=== PATIENT | female | born 1985 | race Caucasian/White ===

== ENCOUNTER 2016-11-11 07:12 | Emergency (ER) | payer OTHER, BC ==
[~2016-11-11] VITALS: Ht 165.1 cm; Wt 113.5 kg
[~2016-11-11 07:12] MED LIST: ATV1 PO; GLC500 PO; LEVO50TA6 PO; METH1TAB18 PO; OMEP40CA41 PO; RTL10 PO; SERT1TAB88 PO
[2016-11-11 07:15] VITALS: TEMP 36.5; Ht 165.1 cm; Wt 113.5 kg
[2016-11-11] MEDS ORDERED: IBUPROFEN 600 MG TAB PO STA (07:26)
--- NOTE | 2016-11-11 07:42 | DIAGNOSTIC IMAGING REPORT ---
RIGHT ANKLE MIN 3 VIEWS ROUTINE CLINICAL HISTORY: R ankle injury at work Right trauma COMPARISON: None. DISCUSSION: Tiny avulsion tip distal fibula. Ankle mortise is aligned anatomically. Mild soft tissue edema. IMPRESSION: Tiny avulsion tip distal fibula. Electronically signed by: Bennie Parker M.D. 11/11/2016 7:40 AM Dictated Date/Time: 11/11/2016 7:40 AM
[2016-11-11 08:01] VITALS: BP 124/85; PULSE 63; O2SAT 100
--- NOTE | 2016-11-11 17:55 | EMERGENCY ROOM VISIT NOTE ---
ED Visit Note First contact with patient: 07:16 CHIEF COMPLAINT: Right ankle pain. HISTORY OF PRESENT ILLNESS: Ms. Mattson is a 31-year old white female who ambulates into the ED complaining of right lateral and posterior ankle pain. 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 She was walking across the floor and make a sudden stop and reported that she twisted her ankle. Since that time she has been having right lateral and posterior ankle pain. She describes the pain as a sharp sensation. She rates her discomfort 6/10. The pain is nonradiating. Her pain worsens with ambulation, weightbearing, palpation, inversion and plantarflexion. She has not identified any alleviating factors related to the pain. She has not taken any medications for pain prior to arrival at the hospital. Associated with her pain she has noted some mild swelling over the lateral aspect of the ankle. Historically she does report she has weak ankles but has never had any fractures or significant surgeries to the right ankle. She denies any associated symptoms including hip pain, knee pain, medial ankle pain, foot pain, leg/foot weakness/numbness/tingling. REVIEW OF SYSTEMS: As previously noted in History of Present Illness. PAST MEDICAL HISTORY: Diabetes. CURRENT MEDICATIONS: Medications Dose Route/Sig Max Daily Dose Days Date Category Sertraline HCl 25 Mg Tab 25 Mg PO DAILY 02/10/16 Reported Methylphenidate HCl 10 Mg Tab 10 Mg PO DAILY PRN 02/10/16 Reported Methylphenidate Hcl Er (Methylphenidate Hcl) 36 Mg Tab 36 Mg PO DAILY 02/10/16 Reported Lorazepam 1 Mg Tab 1 Mg PO HS 02/10/16 Reported Prilosec (Omeprazole) 40 Mg Cap 40 Mg PO DAILY 02/10/16 Reported Metformin HCl 500 Mg Tab 500 Mg PO DAILY 02/10/16 Reported Levothyroxine Sodium 50 Mcg Tab 50 Mcg PO DAILY 06/07/15 Reported ALLERGIES TO MEDICATIONS: Patient denies. SOCIAL HISTORY: Patient is currently employed; she feels safe in her home environment; she admits to tobacco and alcohol use. PHYSICAL EXAM: Vital Signs: Date Time Temp Pulse Resp B/P Pulse Ox O2 Delivery O2 Flow Rate FiO2 11/11/16 08:01 63 16 124/85 100 Room Air 11/11/16 07:15 36.5 74 18 122/88 98 Room Air General: 31 year old female in mild distress due to pain, nontoxic-appearing, afebrile and hemodynamically stable. Neurological: Awake, alert, oriented to person place and time. Answering questions appropriately and following commands. Skin: Warm dry and pink. No soft tissue injuries. Right Lower Extremity: No gross leatha deformities. No tenderness in the hip or knee. Tenderness over the ligamentous areas anterior, inferior and posterior to the ankle with mild swelling but no bony deformities or crepitus. There is mild tenderness over the Achilles tendon which is attached but no tenderness in the gastrocnemius. I was not able to produce any laxity of the ligamentous structures around the ankle. She did have full range of motion of the ankle and the toes. Throughout the foot the skin is pink and warm with brisk capillary refill. Able to distinguish light sensations through all dermatomes of the foot. ED COURSE: Patient is assessed as noted above. Right Ankle X-Rays: Was read by myself and the radiologist shows an avulsion fracture the distal tip of the right fibula. Patient is given 600 mg of ibuprofen and ice for pain, swelling and comfort. Patient is placed in a gel splint and is instructed on crutch use. Patient is educated about her condition and instructed on her treatment plan; she verbalizes understanding and agreement with the our plan. CLINICAL IMPRESSION: Right fibular avulsion fracture. DISPOSITION: Patient is discharged to home in stable condition; prior to discharge patient subjectively reports she is feeling worse and rated the pain 7 /10. PLAN: Comfort measures were discussed with the patient. Patient was told to follow-up with [facility] for recheck and return to work instruction and possible referral to orthopedics. Patient was encouraged to return ED as needed for worsening/uncontrolled pain, uncontrolled swelling, ankle/foot weakness/numbness/tingling or any new/ concerning symptoms.
== END 2016-11-11 08:07 | disposition home or self-care (01) ==
LOC: C.EDB 07:13 → C.EDA 08:07
DX: S82.831A Other fracture of upper and lower end of right fibula, initial encounter for closed fracture (principal); X50.1XXA Overexertion from prolonged static or awkward postures, initial encounter; Y92.89 Other specified places as the place of occurrence of the external cause; Y99.0 Civilian activity done for income or pay; E11.9 Type 2 diabetes mellitus without complications; Z79.899 Other long term (current) drug therapy; Z72.0 Tobacco use

== ENCOUNTER 2017-09-10 03:15 | Emergency (ER) | payer OTHER ==
[~2017-09-10] VITALS: Ht 165.1 cm; Wt 118.4 kg
[2017-09-10 03:18] VITALS: TEMP 36.8; Ht 165.1 cm; Wt 118.4 kg
[2017-09-10] MEDS ORDERED: TRAM-10 PO (03:38)
[2017-09-10] MEDS ORDERED: ALBU18002 INH (03:40)
[2017-09-10] MEDS ORDERED: CHOL20007 PO (03:43)
--- NOTE | 2017-09-10 03:51 | EMERGENCY ROOM VISIT NOTE ---
History First contact with patient: 03:23 Chief Complaint: BACK PAIN Stated Complaint: BACK PAIN History of Present Illness The patient is a 32 year old female who presents to the Emergency Room with complaints of back pain times a few weeks which has worsened tonight. The patient states that she was standing up from going to the bathroom and felt a crack/pop in her back and increased pain. She states that her pain has improved now, but she has an ache across the middle of her back. The pain has been located in the left side of her mid back for the past few weeks. She was seen at her primary care provider and actually had an x-ray done for bronchitis when they found a wedge deformity/compression fracture of the spine. She is scheduled for an MRI tomorrow. She reports trying a chiropractor without relief. She was on steroids which did not help. She has been taking tramadol which do help to relieve her pain. She takes naproxen [id number]. She denies any history of back problems or recent trauma to the back. She denies any numbness/weakness in her legs or arms, fevers, bowel/bladder incontinence or saddle anesthesia. Review of Systems A complete 10 point review of systems was reviewed with the patient with pertinent positives and negatives as per history of present illness. All else were negative. Past Medical/Surgical History Medical Problems: (1) ESOPHAGEAL REFLUX (2) FAM HX-DIABETES MELLITUS (3) FAM HX-ISCHEM HEART DIS (4) TOBACCO USE DISORDER Family History Cancer Diabetes mellitus Heart disease Lung disease Social History Smoking Status: Current Every Day Smoker Alcohol Use: occasionally Marital Status: Housing Status: lives with significant other Occupation Status: employed Current/Historical Medications Scheduled Cholecalciferol (Vitamin D3), 4,000 INTUNIT PO DAILY Levothyroxine Sodium (Levothyroxine Sodium), 75 MCG PO DAILY Metformin HCl (Metformin HCl), 500 MG PO DAILY Methylphenidate Hcl (Methylphenidate Hcl Er), 20 MG PO DAILY Omeprazole (Prilosec), 40 MG PO DAILY Sertraline HCl (Sertraline HCl), 50 MG PO DAILY Tramadol Hcl (Ultram), 50 MG PO Q4H Scheduled PRN Albuterol Sulfate (Proair Respiclick), 2 PUFFS INH DIRECTED PRN for SOB/ Wheezing Lorazepam (Lorazepam), 1 MG PO HS PRN for Sleep Methylphenidate HCl (Methylphenidate HCl), 10 MG PO DAILY PRN for focus Tramadol (Ultram), 50 MG PO Q6 PRN for Pain Physical Exam Vital Signs Date Time Temp Pulse Resp B/P (MAP) Pulse Ox O2 Delivery O2 Flow Rate FiO2 09/10/17 03:59 78 20 130/72 98 09/10/17 03:18 36.8 106 20 144/85 98 Room Air Physical Exam VITALS: Vitals are noted on the nurse's note and reviewed by myself. Vital signs stable. GENERAL: This is a 32-year-old female, in no acute distress, nondiaphoretic, well-developed well-nourished. SKIN: The skin was without rashes. HEART: Regular rate and rhythm without murmurs gallops or rubs. LUNGS: Clear to auscultation bilaterally without wheezes, rales or rhonchi. MUSCULOSKELETAL: There is mild tenderness to palpation in the midline thoracolumbar region and bilateral paraspinous muscles. NEURO: Patient was alert and oriented to person place and time. No focal neurological deficits. Medical Decision & Procedures Medical Decision Differential diagnosis includes cauda equina syndrome, cord compression, disc herniation, compression fracture, muscle spasm, lumbar strain, epidural abscess , malignancy, transverse myelitis, urinary tract infection, colitis, diverticulitis, kidney stone, among others. The patient is a 32-year-old female who presents today complaining of back pain. The patient reports a history of worsening pain over the past few weeks and has been diagnosed with a compression fracture by her primary care provider. She is actually scheduled for an MRI tomorrow. She had worsening pain after standing up from a seated position which has improved at the time of my evaluation. I feel this is likely muscular in nature. She has been taking tramadol at home for the pain and states this has been working very well for her. I do not feel that she needs an emergent MRI at this time. There is nothing to suggest cauda equina syndrome or cord compression. The [employer] system was accessed by case management and shows that the patient does have a compression fracture at the thoracolumbar junction. Patient does state that she is out of tramadol and was given an additional prescription for 10 tablets of this to take until she is able to follow up with her PCP. Based on the patient's presentation and work up, I feel the patient is stable for outpatient treatment. The patient was educated to return to the emergency department for any worsening of their current condition or new/concerning symptoms. She will follow up with her PCP. [facility] Drug Monitoring Program Search Results: patient reviewed within database, no issues identified ( receive tramadol rx 30 pills 08/27/17) Medication Reconcilliation Current Medication List: was personally reviewed by me Blood Pressure Screening Patient's blood pressure: Elevated blood pressure Blood pressure disposition: Elevated BP felt to be situational Impression Primary Impression: Compression fracture Departure Information Dispostion Home / Self-Care Condition GOOD Prescriptions Tramadol Hcl (ULTRAM) 50 Mg Tab 50 MG PO Q4H for Pain, #10 TAB For Initial Treatment Prov: Veronica Roblero .LILIAN 09/10/17 Referrals Augustine Carr M.D. (PCP) Patient Instructions My [facility] Additional Instructions Continue to take the tramadol at home as needed for pain. Return for your MRI as scheduled. Call your primary care provider today to schedule a follow-up appointment. Return to the emergency department for any numbness/weakness of the extremities , worsening pain, fevers, or any other/concerning symptoms.
[2017-09-10 03:59] VITALS: BP 130/72; PULSE 78; O2SAT 98
[2017-09-10] MEDS ORDERED: TRAM-453 PO (04:00)
[2017-10-04] MEDS ORDERED: OXYC-737 PO (05:53)
== END 2017-09-10 04:01 | disposition home or self-care (01) ==
LOC: C.EDB 03:16
DX: M48.55XA Collapsed vertebra, not elsewhere classified, thoracolumbar region, initial encounter for fracture (principal); K21.9 Gastro-esophageal reflux disease without esophagitis; F17.200 Nicotine dependence, unspecified, uncomplicated; Z79.84 Long term (current) use of oral hypoglycemic drugs; Z83.3 Family history of diabetes mellitus; Z82.49 Family history of ischemic heart disease and other diseases of the circulatory system; Z80.9 Family history of malignant neoplasm, unspecified

== ENCOUNTER → 2017-09-11 | Outpatient (CLI) | payer OTHER ==
[~2017-09-11] MED LIST changes: +ALBU18002 INH; +CHOL20007 PO; +TRAM-10 PO; +TRAM-453 PO
--- NOTE | 2017-09-11 08:33 | DIAGNOSTIC IMAGING REPORT ---
MRI OF THE THORACIC SPINE WITHOUT CONTRAST CLINICAL HISTORY: Chronic left sided thoracic pain. COMPARISON: None. TECHNIQUE: Utilizing a 1.5 Rachel magnet and dedicated coil, multiplanar, multiecho imaging of the thoracic spine was performed without IV contrast. FINDINGS: Alignment of the thoracic spine is anatomic. Vertebral body heights are maintained. There is no suspicious marrow replacement. Paravertebral soft tissues are unremarkable. Thoracic cord signal and caliber are normal. There is no intracanalicular mass or fluid collection. There is a tiny left paracentral disc protrusion at T7-T8 with mild inferior subligamentous migration. There is no significant central canal or neural foraminal stenosis. There is mild disc space narrowing with a small left paracentral disc protrusion at T11-T12. No additional protrusion or extrusions are noted. Central canal and neural foramen are patent. A few Schmorl's nodes are noted within the lower thoracic and upper lumbar spine. IMPRESSION: 1. Tiny left paracentral disc protrusion at T7-T8 with mild inferior subligamentous migration. No significant central canal or neural foraminal stenosis. 2. Tiny left paracentral disc protrusion at T11-T12. 3. Normal thoracic cord signal and caliber. Electronically signed by: Patrick Lorenzo M.D. 09/11/2017 8:32 AM Dictated Date/Time: 09/11/2017 8:18 AM
== END | disposition home or self-care (01) ==
LOC: C.MRI 07:24
PROVIDERS: ATTEND Family Medicine
DX: M51.24 Other intervertebral disc displacement, thoracic region (principal); G89.29 Other chronic pain

== ENCOUNTER 2017-10-04 02:11 | Emergency (ER) | payer OTHER ==
[~2017-10-04] VITALS: Ht 165.1 cm; Wt 118.8 kg
[~2017-10-04 02:11] MED LIST changes: -TRAM-453 PO
[2017-10-04 02:24] VITALS: TEMP 36.9; Ht 165.1 cm; Wt 118.8 kg
[2017-10-04] MEDS ORDERED: ONDANSETRON INJ 2 MG/ML 2 ML VIAL IV STA (03:03)
[2017-10-04] MEDS ORDERED: KETOROLAC TROMETHAMINE 30 MG/ML VIAL IV STA (03:03)
[2017-10-04 03:20] LABS: BASO % 0.2 %; BASO ABS # 0.02 K/uL (0-0.2); EOS % 5.8 %; EOS ABS # 0.53 K/uL (0-0.5); HEMATOCRIT 36.8 % (37-47); HEMOGLOBIN 12.4 g/dL (12.0-16.0); IG# 0.02 K/uL (0.00-0.02); LYMPH % 32.6 %; LYMPH ABS # 2.98 K/uL (1.2-3.4); MEAN CELL VOLUME 82.7 fL (80-100); MEAN CORPUSCULAR HEMOGLOBIN 27.9 pg (25-34); MEAN CORPUSCULAR HGB CONC 33.7 g/dl (32-36); MEAN PLATELET VOLUME 9.4 fL (7.4-10.4); MONO % 8.4 %; MONO ABS # 0.77 K/uL (0.11-0.59); NEUT % 52.8 %; NEUT ABS # 4.82 K/uL (1.4-6.5); PLATELET COUNT 264 K/uL (130-400); WHITE BLOOD COUNT 9.14 K/uL (4.8-10.8)
[2017-10-04 03:37] LABS: ALBUMIN 3.7 gm/dl (3.4-5.0); ALT/SGPT 22 U/L (12-78); AST/SGOT 11 U/L (15-37); BLOOD UREA NITROGEN 14 mg/dl (7-18); CALCIUM 8.5 mg/dl (8.5-10.1); CARBON DIOXIDE 27 mmol/L (21-32); CREATININE 0.86 mg/dl (0.60-1.20); GLUCOSE 109 mg/dl (70-99); POTASSIUM 3.8 mmol/L (3.5-5.1); SODIUM 138 mmol/L (136-145)
[2017-10-04 03:40] LABS: ALKALINE PHOSPHATASE 55 U/L (45-117); TOTAL PROTEIN 7.1 gm/dl (6.4-8.2)
[2017-10-04] MEDS ORDERED: MoRPHine SULFATE 4 MG/ML 1 ML CARP\\VIAL IV STA (05:15)
[2017-10-04] MEDS ORDERED: OXYC1TAB3 PO (05:53)
[2017-10-04] MEDS ORDERED: OXYCODONE IR HOME PACK PO ONE (06:00)
[2017-10-04] MEDS ORDERED: ONDANSETRON HOME PACK 4MG OD TAB PO ONE (06:00)
--- NOTE | 2017-10-04 06:10 | EMERGENCY ROOM VISIT NOTE ---
History First contact with patient: 03:02 Chief Complaint: PELVIC PAIN Stated Complaint: PAIN LEFT OVARY History of Present Illness The patient is a 32 year old female who presents to the Emergency Room with complaints of left lower suprapubic pain for the past few days steadily getting worse whose has a history of ovarian cyst. She follows at [facility]. Pain currently 6 out of 10. Nothing makes it better or worse. It does not radiate. It is described as aching. Patient denies chest pain, dyspnea, fever , chills, vomiting, diarrhea, back pain, urinary symptoms, vaginal itching or discharge. Review of Systems See HPI for pertinent positives & negatives. A total of 10 systems reviewed and were otherwise negative. Past Medical/Surgical History Medical Problems: (1) ESOPHAGEAL REFLUX (2) FAM HX-DIABETES MELLITUS (3) FAM HX-ISCHEM HEART DIS (4) TOBACCO USE DISORDER Family History Cancer Diabetes mellitus Heart disease Lung disease Social History Smoking Status: Current Every Day Smoker Alcohol Use: occasionally Marital Status: Housing Status: lives with significant other Occupation Status: employed Current/Historical Medications Scheduled Cholecalciferol (Vitamin D3), 4,000 INTUNIT PO DAILY Levothyroxine Sodium (Levothyroxine Sodium), 75 MCG PO DAILY Metformin HCl (Metformin HCl), 500 MG PO DAILY Methylphenidate Hcl (Methylphenidate Hcl Er), 20 MG PO DAILY Omeprazole (Prilosec), 40 MG PO DAILY Sertraline HCl (Sertraline HCl), 50 MG PO DAILY Scheduled PRN Albuterol Sulfate (Proair Respiclick), 2 PUFFS INH DIRECTED PRN for SOB/ Wheezing Lorazepam (Lorazepam), 1 MG PO HS PRN for Sleep Methylphenidate HCl (Methylphenidate HCl), 10 MG PO DAILY PRN for focus Oxycodone Immediate Rel Tab (Roxicodone Ir), 1-2 TAB PO Q4H PRN for Severe Pain Tramadol (Ultram), 50 MG PO Q6 PRN for Pain Physical Exam Vital Signs Date Time Temp Pulse Resp B/P (MAP) Pulse Ox O2 Delivery O2 Flow Rate FiO2 10/04/17 05:20 63 16 143/73 99 Room Air 10/04/17 03:23 60 16 143/104 96 Room Air 10/04/17 02:24 36.9 75 18 163/98 98 Room Air Physical Exam VITALS: Vitals are noted on the nurse's note and reviewed by myself. Vital signs hypertensive. GENERAL: Pleasant female, in no acute distress, nondiaphoretic, well-developed well-nourished. SKIN: The skin was without rashes, erythema, edema, or bruising. There is no tenting of the skin. Capillary reflex less than 2 seconds. HEAD: Normocephalic atraumatic. EARS: External auditory canals clear, tympanic membranes pearly alba without erythema or effusion bilaterally. EYES: Pupils equal round and reactive to light and accommodation. Conjunctivae without injection, sclerae without icterus. Extraocular movements intact. NOSE: Patent, turbinates without inflammation or discharge. MOUTH: Mucous membranes moist. Pharynx without erythema or exudate. Uvula midline. Airway patent. Tongue does not deviate. NECK: Supple without nuchal rigidity. No lymphadenopathy. No thyromegaly. Cervical spine is nontender. No JVD. HEART: Regular rate and rhythm without murmurs gallops or rubs. LUNGS: Clear to auscultation bilaterally without wheezes, rales or rhonchi. No dullness to percussion. No retractions or accessory muscle use. ABDOMEN: Positive bowel sounds x 4. Normal tympanic percussion. Soft, tender to palpation left lower suprapubic region, no CVA tenderness, protuberant, obese , without masses or organomegaly. Mckeon sign negative. No guarding or rebound tenderness. MUSCULOSKELETAL: No muscle atrophy, erythema, or edema noted. NEURO: Patient was alert and oriented to person place and time. Normal sensation to light and sharp touch. No focal neurological deficits. Medical Decision & Procedures Laboratory Results 10/04/17 03:05 Red Blood Count 4.45, Mean Corpuscular Volume 82.7, Mean Corpuscular Hemoglobin 27.9, Mean Corpuscular Hemoglobin Concent 33.7, Mean Platelet Volume 9.4, Neutrophils (%) (Auto) 52.8, Lymphocytes (%) (Auto) 32.6, Monocytes (%) (Auto) 8.4, Eosinophils (%) (Auto) 5.8, Basophils (%) (Auto) 0.2, Neutrophils # (Auto) 4.82, Lymphocytes # (Auto) 2.98, Monocytes # (Auto) 0.77, Eosinophils # (Auto) 0.53, Basophils # (Auto) 0.02 10/04/17 03:05 Test 10/04/17 03:05 White Blood Count 9.14 K/uL (4.8-10.8) Red Blood Count 4.45 M/uL (4.2-5.4) Hemoglobin 12.4 g/dL (12.0-16.0) Hematocrit 36.8 % (37-47) Mean Corpuscular Volume 82.7 fL (80-100) Mean Corpuscular Hemoglobin 27.9 pg (25-34) Mean Corpuscular Hemoglobin Concent 33.7 g/dl (32-36) Platelet Count 264 K/uL (130-400) Mean Platelet Volume 9.4 fL (7.4-10.4) Neutrophils (%) (Auto) 52.8 % Lymphocytes (%) (Auto) 32.6 % Monocytes (%) (Auto) 8.4 % Eosinophils (%) (Auto) 5.8 % Basophils (%) (Auto) 0.2 % Neutrophils # (Auto) 4.82 K/uL (1.4-6.5) Lymphocytes # (Auto) 2.98 K/uL (1.2-3.4) Monocytes # (Auto) 0.77 K/uL (0.11-0.59) Eosinophils # (Auto) 0.53 K/uL (0-0.5) Basophils # (Auto) 0.02 K/uL (0-0.2) RDW Standard Deviation 39.0 fL (36.4-46.3) RDW Coefficient of Variation 13.0 % (11.5-14.5) Immature Granulocyte % (Auto) 0.2 % Immature Granulocyte # (Auto) 0.02 K/uL (0.00-0.02) Urine Color YELLOW Urine Appearance CLEAR (CLEAR) Urine pH 7.5 (4.5-7.5) Urine Specific Solomon 1.026 (1.000-1.030) Urine Protein NEG (NEG) Urine Glucose (UA) NEG (NEG) Urine Ketones NEG (NEG) Urine Occult Blood TRACE (NEG) Urine Nitrite NEG (NEG) Urine Bilirubin NEG (NEG) Urine Urobilinogen NEG (NEG) Urine Leukocyte Esterase NEG (NEG) Urine WBC (Auto) 1-5 /hpf (0-5) Urine RBC (Auto) 5-10 /hpf (0-4) Urine Hyaline Casts (Auto) 1-5 /lpf (0-5) Urine Epithelial Cells (Auto) >30 /lpf (0-5) Urine Bacteria (Auto) 1+ (NEG) Urine Test NEG (NEG) Anion Gap 5.0 mmol/L (3-11) Est Creatinine Clear Calc Drug Dose 123.4 ml/min Estimated GFR () 105.1 Estimated GFR (Non- 90.7 BUN/Creatinine Ratio 16.6 (10-20) Calcium Level 8.5 mg/dl (8.5-10.1) Total Bilirubin 0.2 mg/dl (0.2-1) Direct Bilirubin < 0.1 mg/dl (0-0.2) Aspartate Amino Transf (AST/SGOT) 11 U/L (15-37) Alanine Aminotransferase (ALT/SGPT) 22 U/L (12-78) Alkaline Phosphatase 55 U/L (45-117) Total Protein 7.1 gm/dl (6.4-8.2) Albumin 3.7 gm/dl (3.4-5.0) Medications Administered Medications (Trade) Dose Ordered Sig/Seema Route Start Time Stop Time Status Last Admin Dose Admin Ketorolac Tromethamine (Toradol Inj) 30 mg NOW STAT IV 10/04/17 03:03 10/04/17 03:06 DC 10/04/17 03:19 30 MG Ondansetron HCl (Zofran Inj) 4 mg NOW STAT IV 10/04/17 03:03 10/04/17 03:06 DC 10/04/17 03:19 4 MG Morphine Sulfate (MoRPHine SULFATE INJ) 4 mg NOW STAT IV 10/04/17 05:15 10/04/17 05:16 DC 10/04/17 05:20 4 MG ED Course Prior records/ancillary studies reviewed. Triage Nursing notes reviewed. Additional history obtained from family The patient's history was concerning for abdominal pain. Differential diagnosis: Etiologies such as cyst, torsion, appendicitis, diverticulitis, PUD, biliary pathology, UTI, pancreatitis, obstruction, mesenteric ischemia, aortic pathology , infections, inflammatory bowel disease, renal colic, as well as others were entertained. Physical examination findings: As above. ER treatment provided: Toradol, morphine, OxyIR On reassessment the patient felt better. Diagnostics interpreted by me: The labs revealed no worrisome leukocytosis. Negative hCG. Negative urine Imaging studies: US PELVIC/ENDOVAG: Compared to 02/21/2016. Redemonstration of complex multicystic lesion or adjacent lesions in the left adnexa, overall measuring approximately 7.1 cm. Hypoechoic lesion also seen in the right adnexa measuring 2.4 cm Differential considerations include endometrioma, hemorrhagic cyst, tubo- ovarian abscess, or neoplasm. Ovaries not well seen. Radiologist: Chyna Sanchez M.D. Exam and history seem consistent with left ovarian cyst. This is slightly larger than prior ultrasound from a year and a half ago. She is advised to follow-up with her OB in a few days or here in the ER sooner for pain, fevers, vomiting, worsening signs or symptoms or as needed. Patient did not have acute abdomen on exam. She is well-appearing. She was not .By the evaluation outlined above emergent etiologies such as appendicitis, diverticulitis, PUD, biliary pathology, UTI, pancreatitis, obstruction, mesenteric ischemia, aortic pathology, infections, inflammatory bowel disease, renal colic, as well as others were deemed relatively unlikely. The pt informed about the findings as listed above. All questions were answered and pleased with the treatment. Return instructions were outlined and the patient was discharged in stable condition. Outpatient prescription management: Chet Schwarz Referral: The patient was referred back to their [facility] for follow-up in 2 to 3 days for a recheck of the current condition. Case reviewed with my attending Medical Decision As above [place] Drug Monitoring Program Search Results: patient reviewed within database, see additional documentation (tramadol 08/31) Medication Reconcilliation Current Medication List: was personally reviewed by me Blood Pressure Screening Patient's blood pressure: Elevated blood pressure Blood pressure disposition: Elevated BP felt to be situational Impression Primary Impression: Left ovarian cyst Departure Information Dispostion Home / Self-Care Condition GOOD Prescriptions Oxycodone Immediate Rel Tab (ROXICODONE IR) 5 Mg Tab 1-2 TAB PO Q4H Y for Severe Pain, #15 TAB Prov: Mercedes Ramesh .LILIAN 10/04/17 Forms WORK / SCHOOL INSTRUCTIONS, HOME CARE DOCUMENTATION FORM, IMPORTANT VISIT INFORMATION Patient Instructions My [facility], ED Cyst Ovarian Additional Instructions DO NOT drive, drink alcohol, operate machinery, or perform dangerous activities today. You were given medications in the ER that can affect your ability to safely function or operate a vehicle. Recommend repeat pelvic ultrasound in 6 weeks for resolution of cyst. Rest. Stay well hydrated. No strenuous activity until symptoms resolve. Zofran 4 tablet every 6 hours as needed for nausea and vomiting. Oxycodone (OxyIR) 5mg: Take 1-2 pills every four hours for breakthrough pain. Avoid alcohol, operating machinery or dangerous equipment, working on ladders or roofs, DRIVING, or situations where being under the influence may be dangerous. It is recommended to use an [id number]-fmq-dwctnhy stool softener such as Colace, 100mg twice daily while taking this medication to avoid constipation. Ibuprofen(Motrin, Advil) may be used for fever or pain. Use 600mg every six hours as needed. Take with food. Avoid using more than 2400mg in a 24 hour period. Do not use 2400mg per day for more than three consecutive days without physician direction. Prolonged inappropriate use can lead to stomach upset or ulcers. (AND/OR) Acetaminophen(Tylenol) may be used for fever or pain. Use 1000mg every six hours as needed. Avoid using more than 3000mg in a 24 hour period. Rest and drink plenty of fluids as tolerated. Continue current medications. Return to the ER immediately for severe pain, heavy vaginal bleeding, abdominal pain, vomiting, fevers, chest pains, difficulty breathing, worsening of your condition, or as needed. Follow up with your [facility] in 2-3 days for a recheck of your current condition.
[2017-10-04 06:12] VITALS: BP 143/73; PULSE 63; O2SAT 99
--- NOTE | 2017-10-04 08:26 | DIAGNOSTIC IMAGING REPORT ---
ULTRASOUND OF THE PELVIS CLINICAL HISTORY: Left pelvic pain. Reported history of endometriosis. COMPARISON STUDY: Abdominal CT dated 06/07/2015. Pelvic ultrasound dated 02/21/2016. TECHNIQUE: Real-time, grayscale, and color flow sonography of the pelvis is performed both transabdominally and endovaginally. Images are reviewed in the transverse and longitudinal planes. FINDINGS: Uterus: The uterus is normal in size and echotexture, measuring 7.0 x 3.7 x 5.0 cm. Endometrium: The endometrium is normal in appearance, and the endometrial stripe is normal in thickness measuring up to 0.6 cm. Ovaries: The left ovary is enlarged and heterogeneous, measuring 7.1 x 3.1 x 5.4 cm. The right ovary measures 2.3 x 1.9 x 2.4 cm. There is a homogeneous hypoechoic obstruction right ovary which measures 2.2 cm. There are at least 4 cystic lesions identified in the left ovary. 1 of these were present a 2.4 cm dominant follicle. 1 measures 3.6 cm and demonstrates heterogeneous/lace like internal echoes, typical in appearance for a hemorrhagic cyst. The remaining 2 are homogeneously hypoechoic and measure up to 3.3 cm. Normal Doppler waveforms are shown within both ovaries. Pelvis: There is trace free fluid in the cul-de-sac. No concerning adnexal lesion is seen. IMPRESSION: 1. A 3.6 cm hemorrhagic cyst is noted in the left ovary. 2. There are least 3 homogeneously hypoechoic lesions present within both ovaries. These are indeterminant but suggestive of endometriomas. Neoplasm is considered much less likely, and these were also seen on 02/21/2016. Follow-up with the patient's residential insurance inspector is recommended. 3. There is no convincing sonographic evidence of ovarian torsion at the time of examination. 4. There is trace free fluid in the cul-de-sac, likely within physiologic limits. Electronically signed by: Didier Payne M.D. 10/04/2017 8:24 AM Dictated Date/Time: 10/04/2017 8:18 AM
== END 2017-10-04 06:14 | disposition home or self-care (01) ==
LOC: C.EDB 02:12 → C.EDA 06:14
DX: N83.202 Unspecified ovarian cyst, left side (principal); K21.9 Gastro-esophageal reflux disease without esophagitis; F17.200 Nicotine dependence, unspecified, uncomplicated; Z79.84 Long term (current) use of oral hypoglycemic drugs; Z80.9 Family history of malignant neoplasm, unspecified; Z83.3 Family history of diabetes mellitus; Z82.49 Family history of ischemic heart disease and other diseases of the circulatory system

== ENCOUNTER 2018-01-25 21:01 | Emergency (ER) | payer OTHER ==
[~2018-01-25] VITALS: Ht 165.1 cm; Wt 122.0 kg
[~2018-01-25 21:01] MED LIST changes: +OXYC1TAB3 PO
[2018-01-25 21:08] VITALS: TEMP 36.7; Ht 165.1 cm; Wt 122.0 kg
[2018-01-25] MEDS ORDERED: ACETAMINOPHEN 325 MG TAB PO STA (21:41)
--- NOTE | 2018-01-25 21:42 | EMERGENCY ROOM VISIT NOTE ---
History First contact with patient: 21:23 Chief Complaint: HEAD INJURY (MINOR) Stated Complaint: HEAD INJURY- WC History of Present Illness The patient is a 32 year old female who presents to the Emergency Room via private vehicle with complaints of "head injury". 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 She states that since then she has felt nauseous, and has had a headache that she rates as a 6/10 but is worsening is associated with light sensitivity, and lightheadedness. She has tried ibuprofen with minimal relief. She notes a history of migraines and this feels quite similar. She denies any history of concussions. She denies any loss of consciousness. She notes she has vomited twice since this time. She denies chance of . Review of Systems A complete 10-point Review of Systems was discussed with the patient, with pertinent positives and negatives listed in the History of Present Illness. All remaining Review of Systems questions can be considered negative unless otherwise specified. Past Medical/Surgical History Medical Problems: (1) ESOPHAGEAL REFLUX (2) FAM HX-DIABETES MELLITUS (3) FAM HX-ISCHEM HEART DIS (4) TOBACCO USE DISORDER Family History Cancer Diabetes mellitus Heart disease Lung disease Social History Smoking Status: Current Every Day Smoker Alcohol Use: occasionally Marital Status: Housing Status: lives with significant other Occupation Status: employed Current/Historical Medications Scheduled Leuprolide Acetate (Lupron Depot), 1 DOSE INJ MONTHLY Physical Exam Vital Signs Date Time Temp Pulse Resp B/P (MAP) Pulse Ox O2 Delivery O2 Flow Rate FiO2 01/25/18 23:06 63 16 136/102 98 Room Air 01/25/18 21:12 18 01/25/18 21:08 36.7 63 18 141/82 98 Room Air Physical Exam VITAL SIGNS - Vital signs and nursing notes were reviewed. Stable. GENERAL -32-year-old female appearing her stated age. Communicates well with provider and answers questions appropriately. SKIN - Gross examination of the entire body surface demonstrates no lacerations to the body surface. Skin overlying the anterior portion of the head as well as the entire scalp is unremarkable. HEAD - Normocephalic, Atraumatic. No Chris's Sign or Raccoon's Eyes. No depressed skull fractures palpable. EYES - PERRL with EOMI bilaterally. Without subconjunctival hemorrhage. Palpebral conjunctiva pink and moist with no injection. EARS - No deformities of external structures noted on gross examination bilaterally. No hemotympanum present. No tympanic perforation noted. Handle of malleus, umbo, cone of light, pars tensa/flaccid all easily visualized. NOSE - Midline and without cyanosis. No epistaxis or clear watery discharge noted. Septum midline without deviation. No septal hematoma noted. No overlying ecchymosis noted. MOUTH/OROPHARYNX - Without perioral cyanosis. Tongue midline with equal elevation of palate bilaterally. No blood noted in the oropharynx. No tonsillar hypertrophy, erythema, or exudates noted. No dental fractures noted. NECK -no tenderness to palpation over the cervical spinous processes. No cervical paraspinal muscle tenderness noted. LUNGS - Chest wall symmetric without accessory muscle use, intercostals retractions, or central cyanosis. Normal vesicular breath sounds CTA B/L. No wheezes, rales, or rhonchi appreciated. CARDIAC - RRR with S1/S2. No murmur, rubs, or gallops appreciated. EXTREMITIES - No gross deformities noted of the extremities. +5/5 strength noted in UE/LE bilaterally. NEUROLOGIC - Cranial nerves II through XII grossly intact. Sensory intact to light touch throughout. PSYCH - A&Ox3 and cooperates fully with examiner. Pt is very pleasant and interacts well with examiner. Medical Decision & Procedures ER Provider Diagnostic Interpretation: HEAD WITHOUT CONTRAST (CT) CLINICAL HISTORY: 32 years-old Female with Head trauma, emesis. Acute head injury TECHNIQUE: Multiple axial CT images of the head were obtained without contrast. A dose lowering technique was utilized adhering to the principles of ALARA. CT DOSE: 537.48 mGy.cm COMPARISON: None. CT head 08/19/2013 FINDINGS: No acute intracranial hemorrhage, midline shift, intracranial mass, hydrocephalus, territorial ischemia or abnormal extra-axial collection. The calvarium is intact. The paranasal sinuses, mastoid air cells, and middle ear cavities are clear. IMPRESSION: No acute intracranial abnormality. The above report was generated using voice recognition software. It may contain grammatical, syntax or spelling errors. Electronically signed by: Jabier Cosby M.D. 01/26/2018 6:27 AM Dictated Date/Time: 01/26/2018 6:26 AM Medications Administered Medications (Trade) Dose Ordered Sig/Seema Route Start Time Stop Time Status Last Admin Dose Admin Acetaminophen (Tylenol Tab) 650 mg NOW STAT PO 01/25/18 21:41 01/25/18 21:42 DC 01/25/18 22:16 650 MG Ondansetron HCl (Zofran Odt) 4 mg NOW STAT PO 01/25/18 21:49 01/25/18 21:50 DC 01/25/18 21:58 4 MG Rizatriptan Benzoate (Maxalt Tab) 10 mg NOW STAT PO 01/25/18 21:51 01/25/18 21:52 DC 01/25/18 22:17 10 MG Medical Decision Patient was seen and evaluated as above in room D1. Review was performed of nursing notes and vital signs. After obtaining a thorough history and physical examination the above work up was performed. She presents to us today status post head injury. She has not lost consciousness but since then she has vomited twice thus far. She has a history of migraines and this feels similar to the pain is increasing. I discussed with her the benefit versus risk of obtaining a CT scan and initially we decided to refrain as it was felt that the risk outweighed the benefit. The patient was given Tylenol, and Zofran. I reevaluated the patient and she unfortunately had vomited a few more times. Her then came to bedside and notes that she was stating that certain individuals were in her room at one point but were never there and subsequently raised concerned that there may be more of a head injury than initially suspected. I informed her that although the mechanism of injury does not sound significant to cause intracranial bleeding, her increased symptoms of vomiting and head pain I believe warrant a CT scan of the head. GCS 15. She denies chance of prior to medication administration and obtaining a CT scan. This was obtained with results as above. No acute process. I suspect she is likely experiencing a concussion. She was also given a Maxalt tablet. She was reevaluated and beginning to feel slightly better. She is to follow-up with occupational health regarding her work-related injury. I also recommend 2 days off of work. She notes her next work day to be Friday therefore she will be given a note for this today. She is to rest and thorough discussion was had regarding management of the concussion and she is to return with worsening. She was educated upon worrisome symptoms which to return. The patient was educated upon management, had questions answered prior to discharge, and was discharged home in good condition. In the evaluation and treatment of this patient, the following differential diagnoses were considered: Concussion, Contrecoup Injury, Brain Tumor, Depression, Encephalitis, Hypothyroidism, Meningitis, CVA, TIA, Migraine, Cluster Headache, Intracranial Abnormality, Intracranial Hemorrhage, Subdural Hematoma, Subarachnoid Hemorrhage, Hydrocephalus. Impression Primary Impression: Closed head injury Additional Impression: Concussion Departure Information Dispostion Home / Self-Care Condition GOOD Referrals Sury Galvez D.O. (PCP) Patient Instructions My [facility] Additional Instructions You have been treated in the Emergency Department for a Closed Head Injury. For pain control, you can use the following [id number] medicines: - Regular strength (325mg/tab) Tylenol (acetaminophen) 2 tabs every 4-6 hours as needed. Do not exceed 12 tablets in a 24 hour period. Avoid taking more than 3 grams (3000 mg) of Tylenol per day. This includes any other sources of acetaminophen you may take on a regular basis. - Regular strength (200 mg/tab) Advil (ibuprofen) 1-2 tabs every 4-6 hours as needed. Do not exceed a dose of 3200 mg per day. You should relax in a quiet, dark place for the rest of the day. Avoid any possible triggers including: cigarette smoke, caffeine, nicotine, chocolate, wine, beer, loud noises or music, or bright lights. You should schedule a follow-up appointment in 2-3 days with your Primary Care Provider or established Neurologist for further evaluation and treatment of your Headache. 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 Return to the Emergency Department if your current symptoms worsen despite treatment course outlined above, or if you develop any of the following symptoms : intractable pain despite aforementioned treatment course, visual disturbances , loss of vision, unilateral weakness or facial drooping, slurring of speech, loss of coordination, or loss of consciousness. Problem Qualifiers
[2018-01-25] MEDS ORDERED: ONDANSETRON 4MG OD TAB PO STA (21:49)
[2018-01-25] MEDS ORDERED: RIZATRIPTAN BENZOATE 10 MG TAB PO STA (21:51)
[2018-01-25] MEDS ORDERED: LPRI375 INJ (22:20)
[2018-01-25 23:06] VITALS: BP 136/102; PULSE 63; O2SAT 98
--- NOTE | 2018-01-26 06:28 | DIAGNOSTIC IMAGING REPORT ---
HEAD WITHOUT CONTRAST (CT) CLINICAL HISTORY: 32 years-old Female with Head trauma, emesis. Acute head injury TECHNIQUE: Multiple axial CT images of the head were obtained without contrast. A dose lowering technique was utilized adhering to the principles of ALARA. CT DOSE: 537.48 mGy.cm COMPARISON: None. CT head 08/19/2013 FINDINGS: No acute intracranial hemorrhage, midline shift, intracranial mass, hydrocephalus, territorial ischemia or abnormal extra-axial collection. The calvarium is intact. The paranasal sinuses, mastoid air cells, and middle ear cavities are clear. IMPRESSION: No acute intracranial abnormality. The above report was generated using voice recognition software. It may contain grammatical, syntax or spelling errors. Electronically signed by: Jaiber Cosby M.D. 01/26/2018 6:27 AM Dictated Date/Time: 01/26/2018 6:26 AM
== END 2018-01-25 23:35 | disposition home or self-care (01) ==
LOC: C.EDB 21:02 → C.EDA 23:35
DX: S09.90XA Unspecified injury of head, initial encounter (principal); S06.0X0A Concussion without loss of consciousness, initial encounter; W20.8XXA Other cause of strike by thrown, projected or falling object, initial encounter; F17.200 Nicotine dependence, unspecified, uncomplicated; Y99.0 Civilian activity done for income or pay

== ENCOUNTER 2018-05-12 17:19 | Emergency (ER) | payer OTHER ==
[~2018-05-12] VITALS: Ht 165.1 cm; Wt 124.0 kg
[~2018-05-12 17:19] MED LIST changes: -ALBU18002 INH; -ATV1 PO; -CHOL20007 PO; -GLC500 PO; -LEVO50TA6 PO; +LPRI375 INJ; -METH1TAB18 PO; -OMEP40CA41 PO; -OXYC1TAB3 PO; -RTL10 PO; -SERT1TAB88 PO; -TRAM-10 PO
[2018-05-12 17:22] VITALS: BP 148/97; PULSE 100; TEMP 36.9; O2SAT 100; Ht 165.1 cm; Wt 124.0 kg
[2018-05-12] MEDS ORDERED: IBUPROFEN 600 MG TAB PO STA (17:30)
--- NOTE | 2018-05-12 17:53 | DIAGNOSTIC IMAGING REPORT ---
L FOOT MIN 3 VIEWS ROUTINE CLINICAL HISTORY: Left foot pain status post trauma COMPARISON: None. DISCUSSION: No acute fractures or dislocations are visualized. IMPRESSION: No fractures or dislocations identified. Electronically signed by: Sudhakar Jasso M.D. 05/12/2018 5:52 PM Dictated Date/Time: 05/12/2018 5:52 PM
--- NOTE | 2018-05-12 18:00 | EMERGENCY ROOM VISIT NOTE ---
ED Visit Note First contact with patient: 17:24 CHIEF COMPLAINT: Left foot injury HPI this 33-year-old female who works here at [employer] and dropped a heavy tray on the top of her left foot while she was wearing her Danskos while at work. After taking her shoe off to look at her foot she could not get the shoe back on her foot. The patient states she is able to bear weight but it is painful. The patient denies any prior injury to her left foot. She has seen Dr. Thibodeaux and [facility] in the past for other orthopedic needs. The patient has not taken anything for pain. REVIEW OF SYSTEMS: 6 system review was performed and was negative unless stated otherwise in history of present illness. PMH: The patient is healthy; diabetic SOCIAL HISTORY: Patient lives with her family. The patient admits to tobacco and occasional alcohol use PHYSICAL EXAM: Vital Signs: Were reviewed reviewed Nurse's notes. GENERAL: 33- year-old white female appears in no acute distress. MENTAL Status: Alert and oriented 3. LEFT FOOT: There is tenderness and swelling over the dorsum of the foot but no deformity. No gross bony deformity noted. The patient is able to move her toes without difficulty. Patient is full range of motion of her ankle. Sensation is intact. EMERGENCY DEPARTMENT COURSE: She was evaluated. The patient was given Motrin 600 mg p.o. for pain. X-ray of the left foot was ordered interpreted by the radiologist and myself. DIAGNOSTICS:L FOOT MIN 3 VIEWS ROUTINE CLINICAL HISTORY: Left foot pain status post trauma COMPARISON: None. DISCUSSION: No acute fractures or dislocations are visualized. IMPRESSION: No fractures or dislocations identified. Electronically signed by: Sudhakar Jasso M.D. The patient was informed of the findings. She was placed in a postop shoe. She was offered crutches but declined. The patient was discharged home in stable condition. TREATMENT: Ice and elevation for one day. Ibuprofen, 600mg every 6 hours for the pain. Wear postop shoe until pain is tolerable without it. DIAGNOSIS: Left foot contusion Problem List Medical Problems: (1) ESOPHAGEAL REFLUX Status: Chronic (2) FAM HX-DIABETES MELLITUS Status: Chronic (3) FAM HX-ISCHEM HEART DIS Status: Chronic (4) TOBACCO USE DISORDER Status: Chronic Current/Historical Medications Scheduled Leuprolide Acetate (Lupron Depot), 1 DOSE INJ MONTHLY Allergies Coded Allergies: No Known Allergies (Unverified , 10/04/17) Vital Signs Date Time Temp Pulse Resp B/P (MAP) Pulse Ox O2 Delivery O2 Flow Rate FiO2 05/12/18 17:22 36.9 100 18 148/97 100 Room Air Medications Administered Medications (Trade) Dose Ordered Sig/Seema Route Start Time Stop Time Status Last Admin Dose Admin Ibuprofen (Motrin Tab) 600 mg NOW STAT PO 05/12/18 17:30 05/12/18 17:31 DC 05/12/18 17:35 600 MG Departure Information Referrals Sury Galvez D.O. (PCP) Patient Instructions My [facility]
[2018-05-12] MEDS ORDERED: LEVO75TA PO (18:05)
[2018-05-12] MEDS ORDERED: OMEP-334 PO (18:05)
[2018-05-12] MEDS ORDERED: GLC/500 PO (18:05)
== END 2018-05-12 18:28 | disposition home or self-care (01) ==
LOC: C.EDB 17:20 → C.EDD 18:28
DX: S90.32XA Contusion of left foot, initial encounter (principal); W20.8XXA Other cause of strike by thrown, projected or falling object, initial encounter; Y92.239 Unspecified place in hospital as the place of occurrence of the external cause; Y99.0 Civilian activity done for income or pay; E11.9 Type 2 diabetes mellitus without complications; Z72.0 Tobacco use; K21.9 Gastro-esophageal reflux disease without esophagitis; Z79.899 Other long term (current) drug therapy

== ENCOUNTER 2019-05-21 23:18 | Observation (INO) ==
--- OUTSIDE RECORDS SUMMARY | 2019-05-21 23:22 | External Medical Summary | Continuity of Care Document ---
:1985 Author Name Mary Jo Chau, Provider Address Unavailable Unavailable , Care Team Providers Name Role Phone Damon Thompson [email or web address] Unavailable Unavailable Unavailable Unavailable Unavailable Problems Lower abdominal pain (789.09) (R10.30) Endometriosis (617.9) (N80.9) Cyst of left ovary (620.2) (N83.202) Encounter for routine gynecological examination (V72.31) (Z0 1.419) Fertility testing (V26.21) (Z31.41) Allergies and Adverse Reactions No Known Drug Allergies (Allergy) Medications Keflex 500 MG Oral Capsule Refills: 0 Sertraline HCl - 25 MG Oral Tablet Refills: 0 LORazepam 1 MG Oral Tablet Refills: 0 Omeprazole TBEC Refills: 0 metFORMIN HCl TABS Refills: 0 Methylphenidate HCl TABS Refills: 0 Levothyroxine Sodium TABS Refills: 0 Procedures History of Ovarian Cystectomy Status: Co mpleted History of Exploratory Laparoscopy Statu s: Completed Immunizations Immunizations not documented Family History great grandmother Family history of congestive heart failure (V17.49) (Z82.49) Status: Active Grandmother Family history of malignant neoplasm of breast (V16.3) (Z80. 3) Status: Active Family history of diabetes mellitus (V18.0) (Z83.3) Status: Active Grandmother Family history of malignant neoplasm of breast (V16.3) (Z80. 3) Status: Active Family history of coronary artery disease (V17.3) (Z82.49) S tatus: Active great grandmother Family history of diabetes mellitus (V18.0) (Z83.3) Status: Active Grandfather Family history of Mental problems (V40.2) (F48.9) Status: Ac tive Brother Family history of Mental problems (V40.2) (F48.9) Status: Ac tive Social History - Smoking Status Current every day smoker Plan of Treatment Planned Observations Planned Goals not documented Results No Known Results Results not documented
[2019-05-21] MEDS ORDERED: SODIUM CHLORIDE 0.9% 1000ML 1,000 ML IV ONE (23:38)
[2019-05-21] MEDS ORDERED: ONDANSETRON INJ 2 MG/ML 2 ML VIAL IV STA (23:38)
[2019-05-21] MEDS ORDERED: fentaNYL citrate 100 MCG/2 ML VIAL IV STA (23:38)
[2019-05-22 00:03] LABS: Basophils # (auto) 0.02 K/uL (0-0.2); Basophils % (auto) 0.2 %; Eosinophils # (auto) 0.28 K/uL (0-0.5); Hematocrit (blood only) 38.9 % (37-47); Immature Granulocytes # (auto) 0.01 K/uL (0.00-0.02); Immature Granulocytes % (auto) 0.1 %; Lymphocytes # (auto) 2.16 K/uL (1.2-3.4); Mean Corpuscular Hgb Conc 33.4 g/dL (32-36); Mean Corpuscular Volume 82.2 fL (80-100); Mean Platelet Volume 10.1 fL (7.4-10.4); Monocytes # (auto) 0.77 K/uL (0.11-0.59); Monocytes % (auto) 8.2 %; Neutrophils # (auto) 6.14 K/uL (1.4-6.5); Neutrophils % (auto) 65.5 %; Platelet Count 249 K/uL (130-400); RDW Coefficient of Variation 15.5 % (11.5-14.5); RDW Standard Deviation 46.5 fL (36.4-46.3); Red Blood Count 4.73 M/uL (4.2-5.4); White Blood Count 9.38 K/uL (4.8-10.8)
[2019-05-22 00:17] LABS: Appearance Urine Turbid (Clear); Bacteria Urine Automated 4+ (Negative); Blood Urine Trace (Negative); Color Urine Dark Yellow; Epithelial Cell Urine Auto >30 /lpf (0-5); Glucose Urine UA Negative (Negative); Leukocyte Esterase Urine Trace (Negative); Nitrite Urine Negative (Negative); Pregnancy Test, Urine Negative (Negative); Protein Urine 1+ (Negative); Specific Gravity Urine 1.035 (1.000-1.030); Urobilinogen Urine Negative (Negative); pH Urine 5.5 (4.5-7.5)
[2019-05-22 00:19] LABS: Albumin Level 4.4 gm/dl (3.4-5.0); Bilirubin Direct 0.2 mg/dl (0-0.2); Calcium 9.4 mg/dl (8.5-10.1); Creatinine Clr Calc Pharmacy 107.8 ml/min; Est GFR (African American) 99.4; Est GFR (Non-African American) 85.8; Potassium 3.1 mmol/L (3.5-5.1)
[2019-05-22 00:19] LABS: Ketones Urine 3+ (Negative)
[2019-05-22 00:20] LABS: Bilirubin Urine Negative (Negative); Ictotest Urine Negative (Negative)
[2019-05-22 00:23] LABS: Bilirubin,Total 0.5 mg/dl (0.2-1); Total Protein 7.7 gm/dl (6.4-8.2)
[2019-05-22 00:30] LABS: Calcium Oxalate Crystals Urine Present (None Prsent); Cast Urine Automated 0 /lpf (0-5); RBC Urine Automated 0-4 /hpf (0-4)
[2019-05-22] MEDS ORDERED: HYDROmorphone INJ 1 MG/ML SYRINGE IV STA (01:07)
[2019-05-22] MEDS ORDERED: cefOXitin 2,000 MG/60 ML BAG IV STA (01:44)
[2019-05-22] MEDS ORDERED: DiphenhydrAMINE HCL 50 MG/ML VIAL IV STA (01:47)
--- NOTE | 2019-05-22 02:07 | History & Physical Report ---
Date of Service May 22, 2019 Assessment & Plan (1) Acute cholecystitis: Patient will be admitted with acute cholecystitis We will proceed with laparoscopic cholecystectomy tomorrow We will continue IV fluids, analgesics, antiemetics History of Present Illness Primary Care Provider: Sury Galvez DO Patient presenting to the emergency room with abdominal pain in the right side and nausea with vomiting Her ultrasound shows gallstones with a positive Mckeon sign and a thickened gallbladder Her liver function studies are normal Recent gastric bypass Allergies Allergy/AdvReac Type Severity Reaction Status Date / Time No Known Allergies Allergy Verified 05/22/19 01:28 Home Medications Home Medications Medication Instructions Recorded Confirmed Type levothyroxine 75 mcg PO QAM 07/22/18 05/22/19 History fluticasone propionate [Flonase 1 spray INTRANASAL DAILY PRN 08/03/18 05/22/19 History Allergy Relief] bupropion HCl 100 mg PO QAM 05/22/19 05/22/19 History omeprazole 20 mg PO QAM 05/22/19 05/22/19 History Past Med/Surg History Medical History Endometriosis GERD (gastroesophageal reflux disease) Hypothyroidism Prediabetes Sleep apnea mild--no cpap Surgical History H/O gastric bypass History of laparotomy for endometriosis History of removal of cyst Left wrist History of tooth extraction wisdom teeth Family History Grandmother Family history of diabetes mellitus maternal and paternal Mother Family history of diabetes mellitus Social History Preferred Language: Senegalese Communication Ability: Effective Rn Anesthetist Required: No Beliefs That Will Affect Care: None Current Living Situation: Spouse and Family Current Living Situation Comment: lives with and brother Feels Safe at Home: Yes Smoking Status: Former smoker Second Hand Exposure: Yes ( smokes, parents smoked) ; Hx Alcohol Use: Yes Alcohol type: beer, wine and hard liquor Hx Substance Use: No Review of Systems All systems reviewed & are unremarkable except as noted in HPI & below Physical Exam Physical Exam: She does have some mild pain to palpation in the upper abdomen Constitutional: well developed and well nourished; no acute distress Eyes: + anicteric sclerae Respiratory: normal respiratory effort; no respiratory distress Cardiovascular: Rate/Rhythm: regular rate Gastrointestinal (Abdomen): Percussion/Palpation: abdomen soft Skin: no rashes, warm and dry Neurologic: awake Psychiatric: Orientation: alert Results & Data Vital Signs (Past 12 Hours) Vital Signs Temp Pulse Pulse Resp BP BP Pulse Ox 05/22/19 02:00 75 14 144/86 H 98 05/22/19 01:26 90 20 159/112 H 98 05/22/19 00:23 83 23 154/83 H 97 05/21/19 23:24 36.8 C 85 18 159/94 H 98 I have reviewed her ultrasound
[2019-05-22] MEDS ORDERED: HYDROmorphone INJ 1 MG/ML SYRINGE IV PRN ×2 (03:27→11:56)
[2019-05-22] MEDS ORDERED: HYDROmorphone INJ 0.5 MG/0.5 ML SYR IV PRN (03:27)
[2019-05-22] MEDS ORDERED: PROMETHAZINE HCL 25 MG in SODIUM CHLORIDE 0.9% 50 ML IV PRN (03:27)
[2019-05-22] MEDS ORDERED: PROMETHAZINE HCL 12.5 MG in SODIUM CHLORIDE 0.9% 50 ML IV PRN (03:27)
[2019-05-22] MEDS ORDERED: ONDANSETRON INJ 2 MG/ML 2 ML VIAL IV PRN (03:27)
[2019-05-22] MEDS: SODIUM CHLORIDE 0.9% 1000ML 1,000 ML IV SCH ×2 (03:38→18:03)
--- NOTE | 2019-05-22 04:13 | Emergency Department Note ---
Entered by Ye Feliciano acting as a scribe for ED Provider Note Name: Gracia Mattson Age: 34 Arrives Via: Triage Informant: Self CC: RUQ abdominal pain HPI: 34 y/o female arrives for evaluation of constant RUQ abdominal pain starting 6.5 hours ago. The patient states her symptoms started while she was at work at [employer]. She reports her symptoms started to ease up, and then she ate walnuts. The patient notes her symptoms worsened after eating. She states now she has back and upper shoulder pain. The patient reports she finished her shift and did not think she could drive home, so she came to the ED. She notes she has not taken anything for her pain. The patient states she re cently had gastric bypass surgery and denies any complications. She reports her surgeon was Sheila Alberto, and her gallbladder was not removed. The patient notes she has lost 60 pounds in two months. She states she is currently nauseous and has been vomiting. The patient denies rashes, fevers, burning or pain with urination, missing a dose of omeprazole, chest pain, shortness of breath, neck pain, leg swelling, and leg cramping. She also denies a personal and family history of kidney stones, kidney infections, bladder infections, and gallstones. The patient notes she quit smoking in June and does not use alcohol anymore. Her LNMP was 3 weeks ago. ROS: See above HPI for pertinent positives & negatives. A total of 10 systems reviewed and were otherwise negative. Past Medical History: GERD, hypothyroidism Past Surgical History: Laparotomy, gastric bypass Family History: DM Social History: Past smoker Home Medications: Omeprazole Allergies None Physical: Vitals: BP 159/94, Pulse 85, Resp 18, Temp 98.2 F, O2Sat 98 on RA Exam: GENERAL: Patient is very uncomfortable appearing and in moderate acute distress. EYES: No scleral icterus, unremarkable pupils. ENT: Mucous membranes dry, no nasal congestion. NECK: No masses appreciated, no meningismus, trachea is midline. RESPIRATORY: No dyspnea. Clear to auscultation and equal bilaterally. No wheeze, no rhonchi. CARDIOVASCULAR: Regular rate and rhythm. No murmurs, rubs, gallops appreciated. GASTROINTESTINAL: Abdomen soft, RUQ tenderness to palpation with guarding, no peritonitis. Bowel sounds positive. No masses appreciated. Well healing port scars from recent surgery. BACK: No midline tenderness, no CVA tenderness EXTREMITIES: Normal motion all extremities, no cyanosis, no edema. NEUROLOGIC: Alert and oriented, no acute motor or sensory deficits, no focal we akness, cranial nerves grossly intact. SKIN: No rash, no jaundice, no diaphoresis. ED Course: Prior Medical Record, Triage/Nursing Notes, Medications, Allergies reviewed by Raleigh gonzalez Vital Signs: reviewed and remarkable for HTN Labs: Reviewed and remarkable for wnl Interventions: saline lock, fentanyl 75mcg IV, Dilaudid 1mg IV, Zofran 4mg IV x 2, Benadryl 50mg IV, NSS bolus 1 L IV, Mefoxin 2g IV Imaging: [facility] Radiologist interpretation reviewed by me: US Gallbladder concerning for cholecystitis EKG: none Consults: 0141: I discussed the patient's case with Dr. Brewer, General Surgery. He will evaluate the patient for further care. Reassessments/Times: 2333: Past medical records reviewed. The patient was evaluated in room B02. A complete history and physical exam was performed. 0009: The patient started to feel a little better after her pain medication. 0108: The patient's pain is increasing upon reevaluation. I discussed the test results and treatment plan. The patient is in agreement with a surgical evaluation. Blood pressure: Elevated -[place] to be Situation. Disposition: Hospitalization Prescriptions: None. Differentials: Differential diagnoses includes but is not limited to gastritis, peptic ulcer disease, GERD, gallbladder disease, pancreatitis, small bowel obstruction, acute coronary syndrome, pericarditis, ischemic bowel, irritable bowel disease, irritable bowel syndrome, appendicitis, diverticulitis, malignancy, hernia, urinary tract infection, torsion, /ectopic , perforation, trauma, infectious. Medical Decision Making: Pleasant 34 yr old female with history of hypohyroid, gerd, sleep apnea arrives for evaluation RUQ pain. Notes Gastric Bypass 3 months ago with 60 lb weight l oss. Exam consistent with cholecysitis. Labs look OK and afebrile. US with similar findings. Gen Surg down to evaluate and will bring in for further management. Impression: Acute cholecystitis Marco Antonio Israel MD The scribe's documentation has been prepared under my direction and personally reviewed by me in its entirety. I confirm that the note above accurately ref lects all work, treatment, procedures, and medical decision making performed by me. Impression & Plan Acute cholecystitis Past Med/Surg History Medical History Endometriosis GERD (gastroesophageal reflux disease) Hypothyroidism Prediabetes Sleep apnea mild--no cpap Surgical History H/O gastric bypass History of laparotomy for endometriosis History of removal of cyst Left wrist History of tooth extraction wisdom teeth Family History Grandmother Family history of diabetes mellitus maternal and paternal Mother Family history of diabetes mellitus Social History Preferred Language: Italian Communication Ability: Effective Mat Linker Required: No Beliefs That Will Affect Care: None Current Living Situation: Spouse Current Living Situation Comment: lives with and brother Other Information That Helps Us Care for You: No Feels Safe at Home: Yes Safety Concerns: Feels Safe At This Time Smoking Status: Former smoker Smoking End Date: jun 2018 ; Second Hand Exposure: Yes ; Hx Alcohol Use: Yes Alcohol type: beer, wine and hard liquor Hx Substance Use: No Results & Data Vital Signs Vital Signs - 24 hr 05/21/19 23:24 05/22/19 00:23 05/22/19 01:26 Temperature 36.8 C Temperature Source Oral Sepsis Recent Fever Within 48 Hours No Sepsis Action Taken by Nursing No Action Required Pulse Rate 85 Pulse Rate [Apical] 83 90 Respiratory Rate 18 23 20 Respiratory Effort / Characteristics Non-Labored Respiratory Depth Normal Blood Pressure 159/94 H Blood Pressure [Right Arm] 154/83 H 159/112 H Blood Pressure Mean 115 Blood Pressure Mean [Right Arm] 106 127 Blood Pressure Position [Right Arm] Sitting Pulse Oximetry 98 97 98 Oxygen Delivery Method Room Air Room Air Room Air 05/22/19 02:00 Temperature Temperature Source Sepsis Recent Fever Within 48 Hours Sepsis Action Taken by Nursing Pulse Rate Pulse Rate [Apical] 75 Respiratory Rate 14 Respiratory Effort / Characteristics Respiratory Depth Blood Pressure Blood Pressure [Right Arm] 144/86 H Blood Pressure Mean Blood Pressure Mean [Right Arm] 105 Blood Pressure Position [Right Arm] Sitting Pulse Oximetry 98 Oxygen Delivery Method Room Air Home Medications Current Medication List: was personally reviewed by me Laboratory Data Attestation: I reviewed the patient's lab results. Result diagrams: 05/21/19 23:50 05/21/19 23:50 Lab Results 05/21/19 05/21/19 05/22/19 Range/Units 23:50 23:50 00:00 WBC 9.38 (4.8-10.8) K/uL RBC 4.73 (4.2-5.4) M/uL Hgb 13.0 (12.0-16.0) g/dL Hct 38.9 (37-47) % MCV 82.2 (80-100) fL MCH 27.5 (25-34) pg MCHC 33.4 (32-36) g/dL RDW Std Deviation 46.5 H (36.4-46.3) fL RDW Coeff of Jose Manuel 15.5 H (11.5-14.5) % Plt Count 249 (130-400) K/uL MPV 10.1 (7.4-10.4) fL Immature Gran % (Auto) 0.1 % Neut % (Auto) 65.5 % Lymph % (Auto) 23.0 % [place] % (Auto) 8.2 % Eos % (Auto) 3.0 % Baso % (Auto) 0.2 % Immature Gran # (Auto) 0.01 (0.00-0.02) K/uL Neut # (Auto) 6.14 (1.4-6.5) K/uL Lymph # (Auto) 2.16 (1.2-3.4) K/uL [place] # (Auto) 0.77 H (0.11-0.59) K/uL Eos # (Auto) 0.28 (0-0.5) K/uL Baso # (Auto) 0.02 (0-0.2) K/uL Sodium 141 (136-145) mmol/L Potassium 3.1 L (3.5-5.1) mmol/L Chloride 109 H (98-107) mmol/L Carbon Dioxide 24 (21-32) mmol/L Anion Gap 8.0 (3-11) BUN 7 (7-18) mg/dl Creatinine 0.89 (0.6-1.2) mg/dl Est Cr Clr Drug Dosing 107.8 ml/min Est GFR ( Amer) 99.4 Est GFR (Non-Af Amer) 85.8 BUN/Creatinine Ratio 8.0 L (10-20) Glucose 93 (70-99) mg/dl Calcium 9.4 (8.5-10.1) mg/dl Total Bilirubin 0.5 (0.2-1) mg/dl Direct Bilirubin 0.2 (0-0.2) mg/dl AST 13 L (15-37) U/L ALT 27 (12-78) U/L Alkaline Phosphatase 65 (45-117) U/L Total Protein 7.7 (6.4-8.2) gm/dl Albumin 4.4 (3.4-5.0) gm/dl Lipase 139 (73-393) U/L Urine Color Dark Yellow Urine Appearance Turbid A (Clear) Urine pH 5.5 (4.5-7.5) Ur Specific [place] 1.035 H (1.000-1.030) Urine Protein 1+ H (Negative) Urine Glucose (UA) Negative (Negative) Urine Ketones 3+ H (Negative) Urine Blood Trace H (Negative) Urine Nitrite Negative (Negative) Urine Bilirubin Negative (Negative) Urine Urobilinogen Negative (Negative) Ur Leukocyte Esterase Trace H (Negative) Urine WBC (Auto) 10-30 H (0-5) /hpf Urine RBC (Auto) 0-4 (0-4) /hpf U Hyaline Cast (Auto) 0 (0-5) /lpf U Epithel Cells (Auto) >30 H (0-5) /lpf Urine Bacteria (Auto) 4+ H (Negative) Urine Crystals Not Reportable Calcium Oxalate Crystal Present A (None Prsent) Urine Yeast Present A (None Prsent) Urine Test (Negative) 05/22/19 Range/Units 00:00 WBC (4.8-10.8) K/uL RBC (4.2-5.4) M/uL Hgb (12.0-16.0) g/dL Hct (37-47) % MCV (80-100) fL MCH (25-34) pg MCHC (32-36) g/dL RDW Std Deviation (36.4-46.3) fL RDW Coeff of Jose Manuel (11.5-14.5) % Plt Count (130-400) K/uL MPV (7.4-10.4) fL Immature Gran % (Auto) % Neut % (Auto) % Lymph % (Auto) % [place] % (Auto) % Eos % (Auto) % Baso % (Auto) % Immature Gran # (Auto) (0.00-0.02) K/uL Neut # (Auto) (1.4-6.5) K/uL Lymph # (Auto) (1.2-3.4) K/uL [place] # (Auto) (0.11-0.59) K/uL Eos # (Auto) (0-0.5) K/uL Baso # (Auto) (0-0.2) K/uL Sodium (136-145) mmol/L Potassium (3.5-5.1) mmol/L Chloride (98-107) mmol/L Carbon Dioxide (21-32) mmol/L Anion Gap (3-11) BUN (7-18) mg/dl Creatinine (0.6-1.2) mg/dl Est Cr Clr Drug Dosing ml/min Est GFR ( Amer) Est GFR (Non-Af Amer) BUN/Creatinine Ratio (10-20) Glucose (70-99) mg/dl Calcium (8.5-10.1) mg/dl Total Bilirubin (0.2-1) mg/dl Direct Bilirubin (0-0.2) mg/dl AST (15-37) U/L ALT (12-78) U/L Alkaline Phosphatase (45-117) U/L Total Protein (6.4-8.2) gm/dl Albumin (3.4-5.0) gm/dl Lipase (73-393) U/L Urine Color Urine Appearance (Clear) Urine pH (4.5-7.5) Ur Specific [place] (1.000-1.030) Urine Protein (Negative) Urine Glucose (UA) (Negative) Urine Ketones (Negative) Urine Blood (Negative) Urine Nitrite (Negative) Urine Bilirubin (Negative) Urine Urobilinogen (Negative) Ur Leukocyte Esterase (Negative) Urine WBC (Auto) (0-5) /hpf Urine RBC (Auto) (0-4) /hpf U Hyaline Cast (Auto) (0-5) /lpf U Epithel Cells (Auto) (0-5) /lpf Urine Bacteria (Auto) (Negative) Urine Crystals Calcium Oxalate Crystal (None Prsent) Urine Yeast (None Prsent) Urine Test Negative (Negative) Administered Medications Sodium Chloride (Nss 1000ml) 1,000 mls @ 80 mls/hr IV .[id number] Stop: 06/21/19 03:26 Last Admin: 05/22/19 03:38 Dose: 80 mls/hr Documented by: [id number] Discontinued Medications Diphenhydramine HCl (Benadryl) 50 mg IV NOW STA Stop: 05/22/19 01:48 Last Admin: 05/22/19 01:56 Dose: 50 mg Documented by: [id number] Fentanyl Citrate (Fentanyl Citrate) 75 mcg IV NOW STA Stop: 05/21/19 23:39 Last Admin: 05/22/19 00:01 Dose: 75 mcg Documented by: [id number] Hydromorphone HCl (Dilaudid) 1 mg IV NOW STA Stop: 05/22/19 01:08 Last Admin: 05/22/19 01:15 Dose: 1 mg Documented by: [id number] Sodium Chloride (Nss 1000ml) 1,000 mls @ 999 mls/hr IV .[id number] ONE Stop: 05/22/19 00:38 Last Infusion: 05/22/19 03:34 Dose: 0 mls/hr Documented by: [id number] Admin: 05/22/19 00:02 Dose: 999 mls/hr Documented by: [id number] Cefoxitin Sodium (Mefoxin) 2,000 mg in 60 mls @ 100 mls/hr IV NOW STA Stop: 05/22/19 02:19 Last Infusion: 05/22/19 03:34 Dose: 0 mls/hr Documented by: [id number] Admin: 05/22/19 01:56 Dose: 100 mls/hr Documented by: [id number] Ondansetron HCl (Zofran) 4 mg IV NOW STA Stop: 05/21/19 23:39 Last Admin: 05/22/19 00:01 Dose: 4 mg Documented by: [id number] Blood Pressure Blood Pressure Findings: Elevated blood pressure Blood Pressure Disposition: elevated BP felt to be situational Discharge Plan Visit Data *Final* Discharge Date/Time: 05/22/19 02:45 Chief Complaint: Abdominal Pain Stated Complaint: PAIN IN RT SIDE ED Provider: Marco Antonio Israel Discharge Problem: Acute cholecystitis Patient Disposition: Admitted As Inpatient Discharge Instructions Interventions: ED Discharge Assessment Last Done: 05/22/19 02:45 The scribe's documentation has been prepared under my direction and personally reviewed by me in its entirety. I confirm that the note above accurately reflects all work, treatment, procedures, and medical decision making performed by me.
[2019-05-22] MEDS: ACETAMINOPHEN 1,000 MG/100 ML VIAL IV PRN (05:02)
[2019-05-22] MEDS: LEVOTHYROXINE SODIUM 75 MCG TABLET PO SCH (05:11)
[2019-05-22] MEDS ORDERED: MoRPHine SULFATE 2 MG/ML CARP IV PRN (05:59)
--- NOTE | 2019-05-22 06:29 | Ultrasound Report ---
BILIARY ULTRASOUND CLINICAL HISTORY: Right upper quadrant pain. Nausea, vomiting. COMPARISON STUDY: No previous studies for comparison. FINDINGS: The pancreas was not visualized due to overlying bowel gas shadowing. No hepatic masses wer e visualized. There are multiple gallstones with mildly echogenic bowel the gallbladder. The technolo gist reports a positive sonographic Mckeon sign. There is mild gallbladder wall thickening. Clinical correlation regards to acute cholecystitis is recommended. If indicated, nuclear medicine hepatic gurmeet iary study could be obtained in follow-up to assess cystic duct patency. There is no ductal dilatatio n. The common bile duct measures 3 mm. There is no right-sided hydronephrosis. IMPRESSION: 1. Cholelithiasis. No evidence of ductal dilatation 2. The technologist reports a positive sonographic Mckeon sign. 3. Mild gallbladder wall thickening. Clinical correlation regards to acute cholecystitis is recommend ed. Electronically signed by: Sudhakar Jasso M.D. 05/22/2019 6:28 AM
[2019-05-22] MEDS: MoRPHine SULFATE 2 MG/ML CARP IV PRN ×3 (08:25→21:10)
[2019-05-22] MEDS: buPROPion HCl 100 MG TABLET PO SCH (08:26)
[2019-05-22] MEDS: PANTOprazole 40 MG TAB PO SCH (08:26)
[2019-05-22] MEDS ORDERED: POTASSIUM CHLORIDE 20 MEQ TABCR PO STA (10:39)
[2019-05-22] MEDS ORDERED: BUPIVACAINE 0.5 % 5 MG/1 ML MPF 30ML VIAL ONE (11:36)
[2019-05-22] MEDS ORDERED: PROPOFOL IV EMULSION 10 MG/ML 20 ML VIAL IV ONE (11:45)
[2019-05-22] MEDS ORDERED: ROCURONIUM BROMIDE 10 MG/ML 5 ML VIAL ONE (11:45)
[2019-05-22] MEDS ORDERED: LIDOCAINE HCL 2% 2 ML VIAL/AMP(20MG/ML) INFIL ONE (11:45)
[2019-05-22] MEDS ORDERED: MIDAZOLAM HCL 1 MG/ML 2ML VIAL ONE (11:46)
[2019-05-22] MEDS ORDERED: fentaNYL citrate 100 MCG/2 ML VIAL ONE ×2 (11:46→12:21)
--- NOTE | 2019-05-22 11:53 | Anesthesiology Consultation ---
Date of Service May 22, 2019 Assessment & Plan Chart Review Chart Review: Acceptable Risk for Surgery and Patient NOT seen in Pre Admission Testing Consults Requested none History Surgery Operation Date: 05/22/19 12:00 Proposed Procedures p Laparoscopic Cholecystectomy - Hever Brewer MD, FACS Height/Weight Height: 5 ft 5 in Weight: 101.2 kg Allergies Allergy/AdvReac Type Severity Reaction Status Date / Time No Known Allergies Allergy Verified 05/22/19 01:28 Medications Home Medications Medication Instructions Recorded Confirmed Last Taken levothyroxine 75 mcg PO QAM 07/22/18 05/22/19 05/21/19 fluticasone propionate [Flonase 1 spray INTRANASAL DAILY PRN 08/03/18 05/22/19 09/07/18 Allergy Relief] bupropion HCl 100 mg PO QAM 05/22/19 05/22/19 05/21/19 omeprazole 20 mg PO QAM 05/22/19 05/22/19 05/21/19 Active Medications Generic Name Dose Route Start Last Admin Trade Name Freq PRN Reason Stop Dose Admin Bupropion HCl 100 mg 05/22/19 09:00 05/22/19 08:26 Wellbutrin PO 06/21/19 08:59 100 mg QAM KWAME Administration Acetaminophen 1,000 mg in 100 mls @ 400 mls/hr 05/22/19 02:02 05/22/19 05:47 Ofirmev IV 06/21/19 02:01 Infused Q8H PRN Infusion Pain Sodium Chloride 1,000 mls @ 80 mls/hr 05/22/19 03:27 05/22/19 03:38 Nss 1000ml IV 06/21/19 03:26 80 mls/hr .[id number] KWAME Administration Cefoxitin Sodium 1,000 mg/ 60 mls @ 100 mls/hr 05/22/19 08:00 05/22/19 09:05 Dextrose IV 06/01/19 07:59 Infused Q6H KWAME Infusion Levothyroxine Sodium 75 mcg 05/22/19 06:30 05/22/19 05:11 Synthroid PO 06/21/19 06:29 75 mcg DAILYBB KWAME Administration Morphine Sulfate 2 mg 05/22/19 05:59 05/22/19 08:25 Morphine Sulfate IV 06/05/19 05:58 2 mg [id number] PRN Administration Pain Pantoprazole Sodium 40 mg 05/22/19 09:00 05/22/19 08:26 Protonix PO 06/21/19 08:59 40 mg QAM KWAME Administration NPO Date Last Intake of Fluids: 05/22/19 Time Last Intake of Fluids: 09:00 Last Intake of Fluids Comment: Sip of water with meds Date Last Intake of Solids: 05/21/19 Time Last Intake of Solids: 20:00 Last Intake of Solids Comment: Per pt statement Past Medical History Medical History Endometriosis GERD (gastroesophageal reflux disease) Hypothyroidism Prediabetes Sleep apnea mild--no cpap Past Family History Family History Grandmother Family history of diabetes mellitus maternal and paternal Mother Family history of diabetes mellitus Past Surgical History Surgical History H/O gastric bypass History of laparotomy for endometriosis History of removal of cyst Left wrist History of tooth extraction wisdom teeth Social History Smoking Status: Former smoker Smoking End Date: jun 2018 Hx Alcohol Use: Yes Alcohol type: beer, wine and hard liquor alcohol intake frequency: holidays/special occasions only Hx Substance Use: No substance use type: does not use Physical Exam Vital Signs Last Vital Signs Temp 36.9 C 05/22/19 07:33 Pulse 60 05/22/19 07:33 Resp 18 05/22/19 07:33 BP 114/74 05/22/19 07:33 Pulse Ox 98 05/22/19 07:33 Testing Laboratory Results 05/21/19 23:50 05/21/19 23:50 Urine Color Dark Yellow 05/22/19 00:00 Urine Appearance Turbid (Clear) A 05/22/19 00:00 Urine pH 5.5 (4.5-7.5) 05/22/19 00:00 Ur Specific [place] 1.035 (1.000-1.030) H 05/22/19 00:00 Urine Protein 1+ (Negative) H 05/22/19 00:00 Urine Glucose (UA) Negative (Negative) 05/22/19 00:00 Urine Ketones 3+ (Negative) H 05/22/19 00:00 Urine Nitrite Negative (Negative) 05/22/19 00:00 Ur Leukocyte Esterase Trace (Negative) H 05/22/19 00:00 Urine WBC (Auto) 10-30 /hpf (0-5) H 05/22/19 00:00 Urine RBC (Auto) 0-4 /hpf (0-4) 05/22/19 00:00 U Hyaline Cast (Auto) 0 /lpf (0-5) 05/22/19 00:00 U Epithel Cells (Auto) >30 /lpf (0-5) H 05/22/19 00:00 Urine Bacteria (Auto) 4+ (Negative) H 05/22/19 00:00 Urine Test Negative (Negative) 05/22/19 00:00 05/22/19 00:00 Urine Test Negative
[2019-05-22] MEDS ORDERED: ePHEDrine sulfate 50 MG/ML AMP IV PRN (11:56)
[2019-05-22] MEDS ORDERED: ATROPINE SULFATE 0.1 MG/ML 10ML SYR IV PRN (11:56)
[2019-05-22] MEDS ORDERED: GLYCOPYRROLATE 0.2 MG/ML VIAL ONE (12:33)
[2019-05-22] MEDS ORDERED: NEOSTIGMINE METHYLSULFATE 5 MG/5 ML SYR ONE (12:33)
--- NOTE | 2019-05-22 12:48 | Operative Report ---
Post Operative Report Pre & Post Diagnosis Operation Date: 05/22/19 12:00 Pre-Op Diagnosis: Cholecystitis Post-Op Diagnosis: Cholecystitis Procedure Operation Date: 05/22/19 12:00 Actual Procedures p Laparoscopic Cholecystectomy - Hever Brewer MD, FACS Surgeon Hever Brewer MD, FACS [employer] nurses Estimated Blood Loss 5 Findings Consistent with Post-Op Diagnosis Specimens gallbladder Description of Procedure see dictation I attest to the content of the Intraoperative Record and any orders documented therein. Any exceptions are noted below.
--- NOTE | 2019-05-22 13:50 | Anesthesiology Progress Note ---
Date of Service May 22, 2019 Anesthesia Post Procedure Vital Signs Vital Signs: Temp Pulse Pulse Resp BP BP Pulse Ox 05/22/19 13:45 52 L 13 128/84 99 05/22/19 13:35 51 L 13 143/78 H 98 05/22/19 13:25 36.3 C L 55 L 13 149/88 H 100 05/22/19 13:15 57 L 14 146/89 H 99 05/22/19 13:05 56 L 12 148/90 H 100 05/22/19 12:57 36.2 C L 60 18 165/95 H 99 05/22/19 07:33 36.9 C 60 18 114/74 98 05/22/19 03:20 36.7 C 75 16 140/93 98 05/22/19 02:45 65 14 131/78 100 05/22/19 02:00 75 14 144/86 H 98 05/22/19 01:26 90 20 159/112 H 98 05/22/19 00:23 83 23 154/83 H 97 05/21/19 23:24 36.8 C 85 18 159/94 H 98 Pain Intensity Right Upper Abdomen: Pain Intensity: 4 Right Shoulder: Pain Intensity: 3 Transfer of Care Handoff Completed per policy Notes Mental Status: alert / awake / arousable Patient Amnestic to Procedure: Yes Nausea / Vomiting: adequately controlled Pain: adequately controlled Airway Patency, RR, SpO2: stable & adequate BP & HR: stable & adequate Hydration State: stable & adequate Anesthetic Complications: no major complications apparent and Pt Satisfied with anesthetic care
--- NOTE | 2019-05-22 22:23 | Operative Report ---
DATE OF OPERATION: 05/22/2019 NAME OF OPERATION: Laparoscopic cholecystectomy. PREOPERATIVE DIAGNOSIS: Acute cholecystitis. POSTOPERATIVE DIAGNOSIS: Acute cholecystitis. STAFF SURGEON: Hever Brewer MD ANESTHESIA: General. DESCRIPTION OF PROCEDURE: The patient was brought in the Operating Room and placed on the Operating Room table in supine position. Her abdomen was prepped and draped in usual fashion. A 0.5% plain Marcaine was used to anesthetize all incisions. Incision was made just in the upper part of the umbilicus below her piercing, carrying dissection down, identifying the fascia, placing a Veress needle, producing pneumoperitoneum. At this point, under visualization after 11 mm port placed, three 5 mm ports were placed, 1 cephalad and 2 laterally. Gallbladder was severely distended. It was grasped and retracted. It was aspirated of bile. It did have sludge within the gallbladder known from prior imaging. Dissection was carried out to the amanda hepatis, identifying the cystic duct and cystic artery. These were clipped and transected and the gallbladder dissected away from the liver bed in the usual fashion and placed in an Endobag. After appropriate irrigation and hemostasis, the Endobag was removed through the umbilical site. Pneumoperitoneum reduced. All ports were removed. Fascia at the umbilicus closed using interrupted 0 Vicryl suture. Skin at the umbilicus closed using interrupted 5-0 Prolene suture. Other sites closed using subcuticular 4-0 Monocryl with Steri-Strips. The patient was transferred to Recovery Room in a stable condition. I attest to the content of the Intraoperative Record and any orders documented therein. Any exception s are noted below.
[2019-05-23] MEDS: MoRPHine SULFATE 2 MG/ML CARP IV PRN ×2 (00:08→06:00)
[2019-05-23] MEDS: ACETAMINOPHEN 1,000 MG/100 ML VIAL IV PRN (02:23)
[2019-05-23] MEDS: SODIUM CHLORIDE 0.9% 1000ML 1,000 ML IV SCH (04:43)
[2019-05-23] MEDS: LEVOTHYROXINE SODIUM 75 MCG TABLET PO SCH (06:00)
[2019-05-23] MEDS ORDERED: HYDROCODONE/ACETAMOPHEN 5/325MG TAB PO PRN ×2 (06:27)
[2019-05-23] MEDS: PANTOprazole 40 MG TAB PO SCH (09:21)
[2019-05-23] MEDS: buPROPion HCl 100 MG TABLET PO SCH (09:21)
--- NOTE | 2019-05-24 05:43 | Discharge Summary ---
PRINCIPAL DIAGNOSIS: Acute cholecystitis. PROCEDURE: The patient underwent laparoscopic cholecystectomy. HISTORY OF PRESENT ILLNESS: The patient is a 34-year-old female who has been having recurrent upper abdominal pain, presented to the Emergency Room with what appears to be acute cholecystitis on her imaging. She was taken to the operating room on 05/22/2019 where she underwent laparoscopic cholecystectomy, which she tolerated very well. She has done well overnight and is felt stable for discharge home today to be followed in the surgical clinic within 1-2 weeks.
== END 2019-05-23 11:10 | disposition home or self-care (01) ==
LOC: ED 23:18 → 3W 23:18
DX: K80.10 Calculus of gallbladder with chronic cholecystitis without obstruction; K21.9 Gastro-esophageal reflux disease without esophagitis; R73.03 Prediabetes; Z79.899 Other long term (current) drug therapy; E03.9 Hypothyroidism, unspecified

== ENCOUNTER 2023-08-28 00:09 | Inpatient (IN) ==
[2023-08-28] MEDS ORDERED: OXYTOCIN 30 UNITS/NSS 30 UNITS/500 ML BAG IV PRN ×2 (00:47→07:50)
[2023-08-28] MEDS ORDERED: LIDOCAINE 1% LOCAL 20 ML VIAL INFIL PRN (00:47)
[2023-08-28] MEDS: LACTATED RINGER'S 1,000 ML IV PRN ×2 (01:00→02:31)
[2023-08-28] MEDS ORDERED: fentaNYL citrate PF 100 MCG/2 ML VIAL ONE (01:56)
[2023-08-28] MEDS ORDERED: BUPIVACAINE 0.25% PF 30 ML VIAL ONE (01:56)
[2023-08-28] MEDS ORDERED: ePHEDrine sulfate 50 MG/ML AMP ONE (01:56)
[2023-08-28] MEDS ORDERED: fentANYL 2 MCG/ML BUPIVacaine 0.125%-NSS 100ML BAG ONE (01:56)
[2023-08-28] MEDS ORDERED: SODIUM CHLORIDE 0.9% PF INJ 10 ML VIAL ONE (01:56)
[2023-08-28] MEDS ORDERED: LIDOCAINE 2%/EPINEPHRINE 1:200,000 20 ML PF ONE (01:57)
[2023-08-28 02:06] LABS: Hematocrit (blood only) 32.3 % (37.0-47.0); Hemoglobin 10.5 g/dl (12.0-16.0); Mean Corpuscular Hemoglobin 26.6 pg (25.0-34.0); Mean Corpuscular Hgb Conc 32.5 g/dL (32.0-36.0); Mean Platelet Volume 10.1 fL (9.4-12.4); Platelet Count 214 K/uL (130-400); RDW Coefficient of Variation 12.6 % (11.5-14.5); RDW Standard Deviation 37.7 fL (36.4-46.3); Red Blood Count 3.94 M/uL (4.20-5.40); White Blood Count 13.06 K/ul (4.8-10.8)
[2023-08-28] MEDS ORDERED: fentaNYL citrate PF 100 MCG/2 ML VIAL EPI PRN (02:47)
[2023-08-28] MEDS ORDERED: NALBUPHINE HCL 5 MG in SYRINGE 0 ML IV PRN (02:47)
[2023-08-28] MEDS ORDERED: LIDOCAINE 2%/EPINEPHRINE 1:200,000 20 ML PF EPI STA (02:47)
[2023-08-28] MEDS ORDERED: LIDOCAINE 2% MPF LOCAL 5 ML VIAL EPI PRN (02:47)
[2023-08-28] MEDS ORDERED: NALOXONE HCL 0.4 MG/1 ML VIAL/CARP IV PRN (02:47)
[2023-08-28] MEDS ORDERED: ROPIVACAINE 0.5% PF 5 MG/ML 20 ML VIAL EPI PRN (02:47)
[2023-08-28] MEDS ORDERED: diphenhydrAMINE 50 MG/ML VIAL IV PRN (02:47)
[2023-08-28] MEDS ORDERED: fentaNYL citrate PF 100 MCG/2 ML VIAL EPI STA (02:47)
[2023-08-28] MEDS ORDERED: SODIUM CHLORIDE 0.9% PF INJ 10 ML VIAL EPI PRN (02:47)
[2023-08-28] MEDS ORDERED: ONDANSETRON INJ 2 MG/ML 2 ML VIAL IV PRN (02:47)
[2023-08-28] MEDS ORDERED: BUPIVACAINE 0.25% PF 30 ML VIAL EPI PRN (02:47)
[2023-08-28] MEDS ORDERED: SODIUM CHLORIDE 0.9% PF INJ 10 ML VIAL EPI STA (02:47)
[2023-08-28] MEDS ORDERED: NALOXONE HCL 1 MG in SODIUM CHLORIDE 0.9% 1,000 ML IV PRN (02:47)
[2023-08-28] MEDS ORDERED: fentANYL 2 MCG/ML BUPIVacaine 0.125%-NSS 100ML BAG EPI PRN (02:47)
[2023-08-28] MEDS ORDERED: BUPIVACAINE 0.25% PF 30 ML VIAL EPI STA (02:47)
[2023-08-28] MEDS ORDERED: ePHEDrine sulfate 50 MG/ML AMP IV PRN (02:47)
--- NOTE | 2023-08-28 02:47 | Anesthesiology Consultation ---
Date of Service August 28, 2023 Assessment & Plan ASA ASA3 Proposed Anesthesia Anesthesia Type: Labor Epidural Risk / Benefits Reviewed With: PT / POA / Parent / Guardian, Accepts Plan and Informed Consent Obtained History Height/Weight Height: 5 ft 5 in Weight: 102.965 kg Allergies Allergy/AdvReac Type Severity Reaction Status Date / Time NSAIDS (Non-Steroidal Allergy Unknown CAN NOT Verified 08/27/23 11:10 Anti-Inflamma TAKE D/T GASTRIC BYPASS Medications Home Medications Medication Instructions Recorded Confirmed Last Taken levothyroxine 75 mcg tablet 75 mcg PO QAM 07/22/18 08/28/23 08/27/23 06:00 cyanocobalamin (vitamin B-12) 1,000 mcg IM MONTHLY 07/30/20 08/28/23 06/07/21 1,000 mcg/mL injection solution cyclobenzaprine 5 mg tablet 5 mg PO TID PRN Muscle Spasm 12/15/22 08/28/23 06/25/23 prenat.vits,darling,ano-ensl-ijyqi 1 tab PO DAILY 01/31/23 08/28/23 06/25/23 acetone (urine) test (Ketone Urine #50 ea 03/17/23 08/27/23 Unknown Test strips) blood sugar diagnostic (OneTouch #150 ea 03/17/23 08/27/23 Unknown Verio test strips) lancets 33 gauge #200 ea 03/19/23 08/27/23 Unknown venlafaxine 50 mg tablet 50 mg PO BID 06/26/23 08/28/23 08/27/23 20:00 Active Medications Generic Name Dose Route Start Last Admin Trade Name Freq PRN Reason Stop Dose Admin Lactated Ringer's 1,000 mls @ 125 mls/hr 08/28/23 00:47 08/28/23 02:31 Lr IV 08/30/23 00:46 125 mls/hr .Q8H PRN Administration L&D Protocol Protocol Past Medical History Medical History History of chicken pox History of COVID-19 Dx 08/2020 ([facility]) > symptoms at time of headache/cold/cough > resolved Anemia Anxiety Controlled, no meds GERD (gastroesophageal reflux disease) Hypothyroidism Prediabetes Diet controlled Sleep apnea Mild, no device Endometriosis Exercise / Class Metabolic Activity II 4-5 Yardwork/Stairs/Walk up hill Past Family History Family History Grandmother Family history of diabetes mellitus maternal and paternal Mother Family history of diabetes mellitus Grandmother (Paternal) Breast cancer Grandmother (Maternal) Breast cancer Denies family history of Ovarian cancer Colorectal cancer Past Surgical History Surgical History History of ovarian cystectomy History of esophagogastroduodenoscopy (EGD) History of cholecystectomy H/O gastric bypass History of laparotomy for endometriosis History of removal of cyst Left wrist History of tooth extraction wisdom teeth Past Anesthesia History No Hx of Anesthesia Complications and No Family Hx of Anesthesia Complications History of PONV No Hx of PONV and No Hx of Motion Sickness Social History Smoking Status: Former smoker Do You Dip or Chew Tobacco: No Hx Alcohol Use: Yes Alcohol type: beer, wine and hard liquor alcohol intake frequency: a few times a month Hx Substance Use: No substance use type: does not use Review of Systems denies fever/cough/ colds/ chest pain/ SOB/ GIOVANA denies GIOVANA Physical Exam Vital Signs Last Vital Signs Temp 36.5 C 08/28/23 00:33 Pulse 75 08/28/23 02:42 Resp 18 08/28/23 00:33 BP 180/99 H 08/28/23 02:41 Pulse Ox 100 08/28/23 02:42 ENMT Mouth: no TMJ abnormality and no dentition abnormality Thyromental Distance: > or= 3.5 Finger Breadths Mallampati Class: II Neck neck extension not limited Respiratory normal respiratory effort; no respiratory distress Auscultation: lungs clear to auscultation bilaterally Cardiovascular Rate/Rhythm: regular rate and regular rhythm Neurologic moves all extremities Psychiatric Orientation: alert and oriented x 3 Testing Laboratory Results 08/28/23 01:33 08/28/23 01:32 POC Glucose 90
[2023-08-28] MEDS ORDERED: bisacodyL 10 MG SUPP PR PRN (07:50)
[2023-08-28] MEDS ORDERED: BENZOCAINE 20% SPRY 85 APPLN/85 GM CAN EXT PRN (07:50)
[2023-08-28] MEDS ORDERED: miSOPROStoL 200 MCG TAB PR ONE (07:50)
[2023-08-28] MEDS ORDERED: IBUPROFEN 600 MG TAB PO PRN (07:50)
[2023-08-28] MEDS ORDERED: HYDROCORTISONE ACETATE 25 MG SUPP PR PRN (07:50)
[2023-08-28] MEDS ORDERED: DIPHTHERIA/TETANUS/PERTUSSIS Vaccine (Tdap, Age 7+yrs) 0.5mL SYR/VL IM ONE (07:50)
[2023-08-28] MEDS ORDERED: OXYTOCIN 20 UNITS/LR 1,002 ML IV SCH (07:50)
[2023-08-28] MEDS ORDERED: oxyCODONE/ACETAMINOPHEN 5mg/325mg TAB PO PRN (07:50)
[2023-08-28] MEDS: DOCUSATE SODIUM 100 MG CAP PO SCH ×2 (08:12→20:53)
[2023-08-28] MEDS: PRENATAL VITAMIN 1 TAB PO SCH (08:12)
--- NOTE | 2023-08-28 08:19 | Delivery Summary ---
Vaginal Delivery Summary Date of Service August 28, 2023 Vaginal Delivery Summary and 2nd Degree LAC 38yo at 38+wks presented in labor and was admitted. complicated by diet controlled GDM and hypothyroidism. RH pos, RI, GBS neg. ultimately desired and received epidural. AROM, thin meconium fluid. The patient dilated to complete and pushed to deliver a viable female infant Apgars 8 and 9 via over 2nd degree perineal laceration. Mouth and nose bulb suctioned at perineum. Shoulders and body delivered with ease. Infant was vigorous and crying at . Cord clamped at 30 seconds of life and infant to maternal abdomen where the cord was then doubly clamped and cut. Placenta delivered spontaneously and intact, three-vessel cord. Hemostasis was not achieved initially with dilute pitocin and uterine massage and drainage of the bladder for approximately 100 cc under sterile conditions and therefore rectal cytotec given, 800mcg. Hemostasis improved. Cervix and sulci intact. EBL 400 cc. Mother and baby stable in recovery. [facility] Vaginal Delivery Charge Delivery Type Details: and 2nd Degree LAC
--- NOTE | 2023-08-28 09:00 | Anesthesia Procedure Note ---
Date of Service August 28, 2023 Anesthesia Post Epidural Note Vital Signs Vital Signs: Temp Pulse Resp BP Pulse Ox 36.9 C 77 18 133/64 100 08/28/23 07:06 08/28/23 08:48 08/28/23 08:33 08/28/23 08:48 08/28/23 07:42 Notes Mental Status: alert / awake / arousable and participated in evaluation Nausea / Vomiting: adequately controlled Pain: adequately controlled Airway Patency, RR, SpO2: stable & adequate BP & HR: stable & adequate Hydration State: stable & adequate Neuraxial Anesthesia: was administered and sensory block is resolving Anesthetic Complications: no major complications apparent and Pt Satisfied with anesthetic care Epidural: Removed without complications and With tip intact
[2023-08-28] MEDS: VENLAFAXINE HCL 37.5 MG TAB PO SCH ×2 (09:08→20:53)
[2023-08-28] MEDS: LEVOTHYROXINE SODIUM 75 MCG TABLET PO SCH (09:08)
[2023-08-28] MEDS ORDERED: diphenhydrAMINE Capsule 25 MG CAP PO ONE (10:14)
[2023-08-28] MEDS: ACETAMINOPHEN 325 MG TAB PO PRN ×2 (14:35→20:54)
--- NOTE | 2023-08-29 05:58 | Obstetrical Progress Note ---
Date of Service August 29, 2023 Assessment & Plan (1) Encounter for care and examination after delivery: Plan -Pt doing well clinically -Vital signs reviewed and WNL -HGB reviewed -Blood type A+ -Rubella immune -Encourage ambulation -Monitor and control pain with Motrin prn -Monitor lochia -Encourage Admission and Anticipated Discharge Date Admission Date: August 28, 2023 Supervising Physician Co-Signing Physician Notes Resident Physician Supervision Note: I was present with Dr. David Garcia during the history and exam. I discussed the case with the resident and agree with the findings and plan as documented in the note. Any exceptions or clarifications are listed here: PPD#1 doing well, continue routine care. Documented By: Ema Chadwick, Subjective 38 yo post- day 1 s/p Ambulation: ambulating normally Voiding: no voiding problems Passing Gas:: Yes Diet Tolerance: regular diet Lochia:: Small Feeding Type:: Current Pain Level: minimal Resting comfortably this AM in NAD. Denies WILLS, CP, SOB, N/V/D, LE pain/swelling. Review of Systems Review of Systems: All systems reviewed & are unremarkable except as noted in HPI & below Physical Exam Physical Exam: General: patient resting comfortably, NAD, non-toxic in appearance, AA&O x 4, answers questions appropriately. Skin: warm, dry, intact HEENT: NC/AT, anicteric sclera, conjunctiva without injection, moist mucus membranes. Heart: +S1/S2, regular, no m/r/g Lungs: equal air entry bilaterally, no rales/rhonchi/wheezes Abd: +BS, soft, NT/ND, uterine fundus firm at umbilicus Ext: warm, no clubbing/cyanosis or edema, Daniel's neg. Neuro: nonfocal, patient AA&O x 4, speech intact, no facial droop, moving all extremities on command. Results & Data Vital Signs (Past 12 Hours) Vital Signs Temp Pulse Resp BP O2 Del Method 08/29/23 04:33 36.4 C L 62 16 123/78 Room Air 08/28/23 23:45 36.5 C 67 16 133/84 Room Air 08/28/23 19:45 36.9 C 71 16 129/83 Room Air Resident Activity Tracking Resident Involvement: Resident Care Provided Care Provided: OB Delivery
[2023-08-29 07:08] LABS: Hematocrit (blood only) 26.1 % (37.0-47.0); Hemoglobin 8.3 g/dl (12.0-16.0)
[2023-08-29] MEDS: DOCUSATE SODIUM 100 MG CAP PO SCH ×2 (08:25→21:03)
[2023-08-29] MEDS: PRENATAL VITAMIN 1 TAB PO SCH (08:25)
[2023-08-29] MEDS: ACETAMINOPHEN 325 MG TAB PO PRN ×3 (08:26→22:50)
[2023-08-29] MEDS: VENLAFAXINE HCL 37.5 MG TAB PO SCH ×2 (08:27→21:04)
[2023-08-29] MEDS: LEVOTHYROXINE SODIUM 75 MCG TABLET PO SCH (08:27)
[2023-08-29] MEDS ORDERED: Nursing to Pharmacy Communication SCH (18:45)
[2023-08-30] MEDS: ACETAMINOPHEN 325 MG TAB PO PRN (05:18)
--- NOTE | 2023-08-30 06:24 | Obstetrical Progress Note ---
Date of Service August 30, 2023 Assessment & Plan (1) Encounter for care and examination after delivery: Plan -Pt doing well clinically -Vital signs reviewed and WNL -HGB reviewed -Blood type A+ -Rubella immune -Encourage ambulation -Monitor and control pain with Motrin prn -Monitor lochia -Encourage -Discharge home today, instructions discussed Admission and Anticipated Discharge Date Admission Date: August 28, 2023 Supervising Physician Co-Signing Physician Notes Resident Physician Supervision Note: I was present with Dr. Hernandez during the history and exam. I discussed the case with the resident and agree with the findings and plan as documented in the note. Any exceptions or clarifications are listed here: [None] Documented By: Maynor Centeno MD, FACOG Subjective 38 yo post- day 2 s/p Ambulation: ambulating normally Voiding: no voiding problems Passing Gas:: Yes Diet Tolerance: regular diet Lochia:: Small Feeding Type:: Current Pain Level: minimal Resting comfortably this AM in NAD. Denies WILLS, CP, SOB, N/V/D, LE pain/swelling. Review of Systems Review of Systems: All systems reviewed & are unremarkable except as noted in HPI & below Physical Exam Physical Exam: General: patient resting comfortably, NAD, non-toxic in appearance, AA&O x 4, answers questions appropriately. Skin: warm, dry, intact HEENT: NC/AT, anicteric sclera, conjunctiva without injection, moist mucus membranes. Heart: +S1/S2, regular, no m/r/g Lungs: equal air entry bilaterally, no rales/rhonchi/wheezes Abd: +BS, soft, NT/ND, uterine fundus firm at umbilicus Ext: warm, no clubbing/cyanosis or edema, Daniel's neg. Neuro: nonfocal, patient AA&O x 4, speech intact, no facial droop, moving all extremities on command. Results & Data Vital Signs (Past 12 Hours) Vital Signs Temp Pulse Resp BP Pulse Ox O2 Del Method 08/29/23 22:42 36.3 C L 69 18 138/86 97 Room Air 08/29/23 19:02 36.6 C 67 19 119/79 97 Room Air Resident Activity Tracking Resident Involvement: Resident Care Provided Care Provided: OB Delivery
[2023-08-30] MEDS ORDERED: LEVOTHYROXINE SODIUM 75 MCG TABLET PO SCH (06:30)
[2023-08-30] MEDS: PRENATAL VITAMIN 1 TAB PO SCH (08:17)
[2023-08-30] MEDS: DOCUSATE SODIUM 100 MG CAP PO SCH (08:17)
[2023-08-30] MEDS: VENLAFAXINE HCL 37.5 MG TAB PO SCH (08:17)
== END 2023-08-30 09:47 | disposition home or self-care (01) | DRG 807 ==
LOC: OPB 00:09 → 4S1 00:14 → 4E2 10:14